=== PATIENT | female | born 1955 | race African-American/Black ===

== ENCOUNTER 2019-09-10 09:47 | Emergency (ER) | payer BC, SELFPAY ==
[2019-09-10] MEDS ORDERED: MORPHINE 4 MG/ML SYR ONE (10:22)
[2019-09-10] MEDS ORDERED: ONDANSETRON 4 MG (ODT) TAB ONE (10:22)
--- NOTE | 2019-09-10 11:09 | RAD REPORT ---
EXAM DESCRIPTION: RAD - Hand Left 3 View - 09/10/2019 11:01 am CLINICAL HISTORY: PAIN Fall, pain and swelling COMPARISON: No comparisons FINDINGS: Diffuse osteopenia is present. No acute fracture or dislocation is evident.
--- NOTE | 2019-09-10 11:10 | RAD REPORT ---
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 Soft tissue swelling is present along the dorsum of the wrist. No acute fracture or dislocation is evident.
--- OUTSIDE RECORDS SUMMARY | 2019-09-10 11:35 | XMS REPORT | Continuity of Care Document ---
:1955 Author Organization [email or web address] Care Team Providers Name Role Phone [employer] Unavailable Un available Problems Problem Status Onset Classification Date Comments Sourc e Date Reported LABS, F/U Active 11/25/[address] LABS---FOLLOW UP Active 06/10/[address] LAB FU Active 02/11/[address] LABS Active 12/25/[address] FOLLOW UP Active 05/06/[address] BDDC-GERD Active 10/09/[address] LOW IRON Active 08/27/[address] 723.4 - BRACHIAL Active 08/09/19 [facility] NEURIT 15 [place] CERVICAL Active 02/14/20 Condition 08/08/2014 [facility] RADICULOPATHY 14 Neuro 723.1 - Active 02/13/20 [facility] CERVICALGIA 14 [place] DYSPHAGIA Active 09/07/[address] COMPLICATIONS Active 08/06/19 Misael as FROM SURGERY [address] [place] [address] ABDOMINAL PAIN Active 07/26/19 [facility] xas [address] [place] [address] 727.82 - CALCIUM Active 02/09/20 [facility] DEPOSIT 13 [place] Anxiety (finding) Resolved Problem 09/30/2018 [facility], OPID [place] Diabetes mellitus Active Problem 09/30/2018 [facility] (disorder) [facility], OPID [place] Hyperlipidemia Resolved Problem 09/30/2018 [facility] (disorder) [facility], OPID [place] Hypertensive Active Problem 09/30/2018 Misael as disorder, Medical systemic arterial Ce nter, (disorder) OPID [place] Hypothyroidism Resolved Problem 09/30/2018 [facility] (disorder) [facility], OPID [place] Low blood Active Problem 09/30/2018 [facility] pressure Medical (disorder) [place], OPID [place] Left hemiparesis Active Problem 09/30/2018 [facility] (disorder) [facility] Nausea (finding) Active Problem 09/30/2018 [facility], JASON [place] Numbness and Active Problem 09/30/2018 [facility] as tingling Medical sensation of skin Ce nter (finding) Osteoarthritis Active Problem 09/30/2018 [facility] ex (disorder) [facility], JASON [place] Pain (finding) Active Problem 09/30/2018 [facility], JASON [place] Disease of Active Problem 09/30/2018 [facility] thyroid gland Medica l (disorder) Center, JASON [place] COMPLIC MED CARE Active [facility] NEC/NOS [facility] Center ABDMNAL PAIN Active [facility] s EPIGASTRIC [facility] Medications Medication Details Route Status Patient Ordering Order Source Instructions Provider Date ferrous sulfate 325 325 mg = 1 tab, Active 11/06 0/ [place] MG Oral Tablet PO, TID, # 100 2016 Ma dical tab, 2 Center Refill(s), Pharmacy: [facility]/pharmacy #[id number] Levofloxacin 750 MG 750 mg = 1 tab, No Longer / [facility] Oral Tablet PO, Q24H, for Active 2016 Medica l [Levaquin] pneumonia, X 5 Center day, # 5 tab, 0 Refill(s), Pharmacy: [facility]/pharmacy #[id number] ferrous sulfate 220 220 mg = 5 ml, Active 02/10 / [facility] mg/5 mL oral elixir PO, Daily, # 2016 Medical 450 ml, 5 Center Refill(s), Pharmacy: [facility]/pharmacy #[id number] Levothyroxine 50 microgram = Active 10/30/ [facility] Sodium 0.05 MG Oral 1 tab, PO, 2015 M edical Tablet [Synthroid] Daily, # 30 C enter tab, 0 Refill(s) Acetaminophen 325 1 tab, PO, TID, Active 10/30/ [facility] MG / Hydrocodone PRN Pain, # 60 2015 Medical Bitartrate 10 MG tab, 0 Center Oral Tablet [[place] Refill(s) 10/325] ALPRAZOLAM TABS 1 tab twice Active 08/08/ [facility] 2014 Neuro GABAPENTIN 300 MG 2 tab three Active 08/08/ [place] CAPS times daily 2014 Neuro AMITRIPTYLINE HCL 1 tab daily Active 08/08/ [place] 10 MG TABS 2015 Neuro HYDROCODONE-ACETAMI 1 to 2 tabs Active 08/08/ [facility] NOPHEN 10-325 every 4-6 hs 2014 Neuro MG/15ML SOLN prn pain CRESTOR 10 MG TABS Active 02/14/ ch er 2013 Neuro LEVOTHYROXINE Active SODIUM TABS 2013 Neuro METFORMIN HCL 1000 Active ch er MG TABS 2013 Neuro NORVASC 5 MG TABS Active che r 2014 Neuro DIOVAN TABS Active 2014 Neuro Acetaminophen 325 1 tab, PO, Q4H, Active [facility] MG / Hydrocodone for pain, # 24 2014 Medical Bitartrate 5 MG tab, 1 Center Oral Tablet [[place] Refill(s) 5/325] Acetaminophen 21.7 15 ml, PO, Q6H, Inactive [place] MG/ML / Hydrocodone Pain, # 240 mL, 2013 Medical Bitartrate 0.5 0 Refill(s) Cente r MG/ML Oral Solution Magnesium Sulfate 2 gm, 50 mL, Inactive [facility] Route: IVPB2013 Medical Drug form: INJ, Center ONCE, Dosing Weight 57.33, kg, Total dose = 2 gm, Start date: 09/04/13 6:13:00, Duration: 1 doses or times, Stop date: 09/04/13 6:13:00 Magnesium Sulfate 2 gm, 50 mL, Inactive [place] Route: IVPB2013 Medical Drug form: INJ, Center ONCE, Dosing Weight 57.33, kg, Total dose = 2 gm, Start date: 09/02/13 11:15:00, Duration: 1 doses or times, Stop date: 09/02/13 11:15:00 Calmoseptine Notes: (Same No Longer [place] as: Active 2013 Medical Calmoseptine) Center 1/2NS + KCL 20mEq/L 1,000 mL, Rate: No Longer [place] 1000ml (Premix) 75 ml/hr, Active 2013 Medica l 1,000 mL Infuse over: Center 13.3 hr, Route: IV, Dosing Weight 66.818 kg, Total Volume: 1,000, Start date: 08/28/13 12:09:00, Duration: 30 day, Stop date: 09/27/13 12:08:00 multivitamin with Notes: Adult No Longer [facility] minerals dose = 15ML Active 2013 Medical Take with food. Center (Same As: Centrum, Certagen) Ascorbic Acid / 1 ml, Route: No Longer [facility] Biotin / Folic Acid PO, Drug Form: Active 2013 Medical / Niacin / LIQ, Dosing Center pantothenate / Weight 66.818, pyridoxine / kg, Daily, Riboflavin / Start date: Thiamine / Vitamin 08/28/13 B 12 9:00:00, Duration: 30 day, Stop date: 09/26/13 9:00:00 Copper Sulfate 4 mg, Route: No Longer [place] PO, Daily, Active 2013 Medical Dosing Weight Center 66.818, kg, Start date: 08/28/13 9:00:00, Duration: 30 day, Stop date: 09/26/13 9:00:00 Zinc Sulfate Notes: (Zinc No Longer [place] sulfate Active 2013 Medical capsule) - 220 Center mg Zinc sulfate = 50 mg elemental zinc Same as Zinc Sulfate Valium Notes: (Same No Longer [facility] as: Valium) Active 2013 [facility] Magnesium Sulfate 2 gm, 50 mL, Inactive [facility] Route: IVPB2013 Medical Drug form: INJ, Center Q2H, Dosing Weight 66.818, kg, Total dose = 4 gm, Start date: 08/27/13 16:00:00, Duration: 2 doses or times, Stop date: 08/27/13 18:00:00 gabapentin 50 MG/ML Notes: (Same No Longer 08/26 [facility] Oral Solution as: Neurontin) Active 2013 [facility] ica Center Valium Notes: (Same No Longer [facility] as: Valium) Active 2013 [facility] Magnesium Sulfate 2 gm, 50 mL, Inactive [facility] Route: IVPB2013 Medical Drug form: INJ, Center Q2H, Dosing Weight 66.818, kg, Total dose = 4 gm, Start date: 08/24/13 12:00:00, Duration: 2 doses or times, Stop date: 08/24/13 14:00:00 Valium Notes: (Same No Longer [facility] as: Valium) Active 2013 [facility] heparin, porcine Notes: porcine No Longer [facility] heparin Active 2013 [facility] benzocaine-menthol Notes: Cepacol No Longer 08/05 [facility] topical lozenges (Same Active 2013 Medical As: Cepacol [place] Lozenges) Menthol 0.0044 Notes: (Same No Longer [facility] MG/MG / Zinc Oxide as: Active 2013 Medic al 0.2 MG/MG Topical Calmoseptine) [place] Ointment [Calmoseptine Ointment] Valium Notes: (Same Inactive [facility] as: Valium) 2013 [facility] Benzocaine 200 1 appl, Route: Inactive [place] MG/ML Mucosal [place] TOP, Q4H, Drug 2013 Medical [Hurricaine] form: SPRY, PRN Nikki ter Pain, Start date: 08/23/13 8:55:00, Duration: 30 day, Stop date: 09/22/13 8:54:00 benzocaine-menthol Notes: Cepacol Inactive 08/23 [facility] topical lozenges (Same 2013 Medical As: Cepacol [place] Lozenges) Menthol 2.5 MG 1 lozenge, [place] Lozenge [Robitussin Route: PO, 2013 M edical Cough Drop] Dosing Weight Center 66.818, kg, Q2H, Start date: 08/23/13 8:00:00, Duration: 30 day, Stop date: 09/22/13 6:00:00 benzocaine-menthol 1 lozenge, Inactive [place] topical Route: MUCOUS 2013 Medical MEM, Drug Form: Center JAI, Q2H, PRN Sore Throat, Start date: 08/23/13 7:26:00, Duration: 30 day, Stop date: 09/22/13 7:25:00 phenol Notes: No Longer [facility] Chloraseptic Active 2013 Medical [place] (Same as: [place] Chloraseptic, Sore Throat [place]) Menthol 0.0044 1 appl, Route: Inactive H [place] MG/MG / Zinc Oxide TOP, BID, Drug 2013 Medical 0.2 MG/MG Topical form: OINT, PRN Center Ointment Sore Throat, [Calmoseptine Start date: Ointment] 08/23/13 7:25:00, Duration: 30 day, Stop date: 09/22/13 7:24:00 Ancef + Sodium Notes: (Same No Longer [facility] Chloride 0.9% IV As: Ancef, Active 2013 [facility] connie 100 mL Kefzol) Center Dexamethasone 4 mg, Route: Inactive [place] IVP, ONCE, 2013 Medical Dosing Weight Center 66.818, kg, PRN Nausea & Vomiting, Start date: 08/22/13 12:15:00 Ondansetron 4 mg, Route: Inactive [place] as IVP, ONCE, 2013 Medical Dosing Weight Center 66.818, kg, PRN Nausea & Vomiting, Start date: 08/22/13 12:15:00 Promethazine 6.25 mg, Route: Inactive [place] IVPB, ONCE, 2013 Medical Dosing Weight Center 66.818, kg, PRN Nausea & Vomiting, Start date: 08/22/13 12:15:00 Flumazenil 0.2 mg, Route: [place] IVP, PRN, 2013 Medical Dosing Weight [place] 66.818, kg, PRN Benzodiazepine Reversal, Initial dose, Start date: 08/22/13 12:15:00, Duration: 30 day, Stop date: 09/21/13 12:14:00 Naloxone 0.04 mg, Route: Inactive [place] as IVP, Q2MIN, 2013 Medical Dosing Weight Center 66.818, kg, PRN Narcotic Reversal, Start date: 08/22/13 12:15:00, Duration: 8 doses or times, Stop date: Limited # of times Hydralazine 10 mg, Route: [place] IVP, Q20Min, 2013 Medical Dosing Weight Center 66.818, kg, PRN Elevated BP, Start date: 08/22/13 12:15:00, Duration: 2 doses or times, Stop date: Limited # of times esmolol 10 mg, Route: Inactive [place] IVP, Q5Min, 2013 Medical Dosing Weight Center 66.818, kg, PRN Other -See Comment, Start date: 08/22/13 12:15:00, Duration: 5 doses or times, Stop date: Limited # of times Labetalol 10 mg, Route: [facility], Q[facility], 2013 Medical Dosing Weight Center 66.818, kg, PRN Elevated BP, Start date: 08/22/13 12:15:00, Duration: 5 doses or times, Stop date: Limited # of times Metoprolol 1 mg, Route: [facility], Q5Min, 2013 Medical Dosing Weight Center 66.818, kg, PRN Other -See Comment, Start date: 08/22/13 12:15:00, Duration: 5 doses or times, Stop date: Limited # of times Hydromorphone 0.5 mg, Route: Inactive [facility] IVP, Q5Min, 2013 Medical Dosing Weight Center 66.818, kg, PRN Pain Score 7-10, Start date: 08/22/13 12:15:00, Duration: 4 doses or times, Stop date: Limited # of times Morphine Notes: (Same No Longer [facility] as:MORPhine Active 2013 Medical Sulfate) Center Ancef 2 gm, Route: Inactive [place] IVPB, ONCE, 2013 Medical Dosing Weight Center 66.818, kg, Start date: 08/22/13 10:55:00, Stop date: 08/22/13 10:55:00 Sodium Chloride 250 mL, Rate: No Longer [facility] 0.9% (titrate) 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 Medical mL with blood Center product administration, Dosing Weight 66.818, kg, Route: IV, Total Volume: 250, Start Date: 08/21/13 16:15:00, Duration: 30 day, Stop date: 09/20/13 16:14:00, Replace Every: 24 hr Magnesium Sulfate 2 gm, 50 mL, Inactive [place] Route: IVPB2013 Medical Drug form: INJ, Center ONCE, Dosing Weight 66.818, kg, Total dose = 2 gm, Start date: 08/21/13 8:30:00, Duration: 1 doses or times, Stop date: 08/21/13 8:30:00 Magnesium Sulfate 2 gm, 50 mL, Inactive [place] Route: IVPB2013 Medical Drug form: INJ, Center Q2H, Dosing Weight 66.818, kg, Total dose = 4 gm, Start date: 08/19/13 10:00:00, Duration: 2 doses or times, Stop date: 08/19/13 12:00:00 D5W 1/2NS 1,000 mL 1,000 mL, Rate: Inactive 08/05 [facility] 75 ml/hr, 2013 Medical Infuse over: Center 13.3 hr, Route: IV, Dosing Weight 66.818 kg, Total Volume: 1,000, Start date: 08/19/13 9:34:00, Duration: 30 day, Stop date: 09/18/13 9:33:00 Menthol 0.0044 Notes: (Same No Longer [facility] MG/MG / Zinc Oxide as: Active 2013 Medic al 0.2 MG/MG Topical Calmoseptine) Center Ointment [Calmoseptine Ointment] Ketorolac 4 days. Inactive [facility] 2014 Medical Center Flagyl Notes: (Same Inactive [facility] as: Flagyl) 2013 Medical Avoid alcohol. Center Saline Flush 0.9% Notes: Same as: No Longer 08/05 [facility] BD Posiflush Active 2013 Medical Sterile Center Saline Flush 0.9% Notes: Same as: No Longer 08/05 [facility] BD Posiflush Active 2013 Medical Sterile Center Lidocaine Notes: ([facility] Hydro[facility] 10 as: Xylocaine) Active 2013 Medical MG/ML Injectable Center Solution Diflucan Notes: (Same No Longer [facility] as: Diflucan) Active 2013 Medical Do not Center refrigerate Magnesium Sulfate 2 gm, 50 mL, Inactive [facility] Route: IVPB, 2013 Medical Drug form: INJ, Center ONCE, Dosing Weight 66.818, kg, Total dose = 2 gm, Start date: 08/16/13 9:03:00, Duration: 1 doses or times, Stop date: 08/16/13 9:03:00 Miralax Notes: Dissolve No Longer [facility] as in 8 oz of Active 2013 Medical water or juice. Center (Same as: Miralax) Flagyl Notes: (Same No Longer [facility] as: Flagyl) Active 2013 Medical Center cefepime Notes: (Same No Longer [facility] As: Maxipime) Active 2013 Medical Center morphine Sulfate Notes: (Same Inactive [facility] as:MORPhine 2013 Medical Sulfate) Center D5W 1/2NS 1,000 mL 1,000 mL, Rate: No Longer [place] 125 ml/hr, Active 2013 Medical Infuse over: 8 Center hr, Route: IV, Dosing Weight 66.818 kg, Total Volume: 1,000, Start date: 08/15/13 0:00:00, Duration: 30 day, Stop date: 09/13/13 23:59:00 Morphine Notes: (Same Inactive [facility] as:MORPhine 2013 Medical Sulfate) Center Morphine Notes: (Same Inactive [facility] as:MORPhine 2013 Medical Sulfate) Center Acetaminophen 20 Notes: Do not No Longer [place] MG/ML / Hydrocodone exceed 4gm/day Active 2013 Medical Bitartrate 0.667 of Center MG/ML Oral Solution acetaminophen. (Same as: [place] 325/10) Magnesium Sulfate 2 gm, 50 mL, Inactive [facility] Route: IVPB, 2013 Medical Drug form: INJ, Center Q2H, Dosing Weight 66.818, kg, Total dose = 4 gm, Start date: 08/14/13 8:00:00, Duration: 2 doses or times, Stop date: 08/14/13 10:00:00 Phosphorus / Notes: (Same In[place] Potassium as: K 2013 Medical Phosphate.) 1 Center mMol phoshate has 1.47 mEq potassium Infuse over 4 hours iodixanol Notes: (Same Inactive [facility] as: Visipaque). 2013 Medical Center Acetaminophen 20 Notes: Do not No Longer [place] MG/ML / Hydrocodone exceed 4gm/day Active 2013 Medical Bitartrate 0.667 of Center MG/ML Oral Solution acetaminophen. (Same as: Zolvit) Acetaminophen 20 Notes: Do not No Longer [facility] MG/ML / Hydrocodone exceed 4gm/day Active 2013 Medical Bitartrate 0.667 of Center MG/ML Oral Solution acetaminophen. (Same as: [place] 325/10) Neutra-Phos 1 pkt, Route: Inactive [place] PO, Dosing 2013 Medical Weight 66.818, Center kg, TID-Before Meals, Start date: 08/12/13 11:30:00, Duration: 30 day, Stop date: 09/11/13 7:30:00 Phosphorus / Notes: (Same Inactive [place] Potassium as: K 2013 Medical Phosphate.) 1 Center mMol phoshate has 1.47 mEq potassium Infuse over 4 hours Magnesium Sulfate 2 gm, 50 mL, Inactive [facility] Route: IVPB, 2013 Medical Drug form: INJ, Center Q2H, Dosing Weight 66.818, kg, Total dose = 4 gm, Start date: 08/11/13 10:00:00, Duration: 2 doses or times, Stop date: 08/11/13 12:00:00 Dilaudid Notes: Same as: Inactive [place] as Dilaudid 2013 [facility] Center Thyroxine Notes: Take 1 No Longer [place] as hour before or Active 2013 Medical 2 hours after Center meal; Enteral feeds may interefere with the absorption of this medication.(Sean e as:Levothroid, Synthroid) rosuvastatin Notes: (Same No Longer [place] As: Crestor) Active 2013 [facility] Acetaminophen 20 Notes: Do not No Longer [place] MG/ML / Hydrocodone exceed 4gm/day Active 2013 Medical Bitartrate 0.667 of Center MG/ML Oral Solution acetaminophen. (Same as: Zolvit) Insulin, Regular, 60 units) No Longer [facility] Pork Stable for 28 Active 2013 Medical days at room Center temperature Expires in days from D ate Dextrose 50% 12.5 gm, 25 mL, No Longer 08/10/ [facility] Syringe Route: IVP, Active 2013 Medical Drug Form: INJ, Center Dosing Weight 66.818, kg, PRN, PRN Blood Glucose Results, Start date: 08/10/13 16:32:00, Duration: 30 day, Stop date: 10/09/13 16:31:00 Glucagon 1 mg, Route: No Longer [place] IM, Drug form: Active 2013 Medical PDR/INJ, PRN, Center Dosing Weight 66.818, kg, PRN Blood Glucose Results, Start date: 08/10/13 16:32:00, Duration: 30 day, Stop date: 10/09/13 16:31:00 gabapentin Notes: (Same No Longer [place] as as: Neurontin) Active 2013 Medical Center Phosphorus / Notes: (Same In[place] Potassium as: K 2013 Medical Phosphate.) 1 Center mMol phoshate has 1.47 mEq potassium Infuse over 4 hours Valium Notes: (Same No Longer [place] as: Valium) Active 2013 Medical Center Valium Notes: (Same Inactive [place] as: Valium) 2014 Medical Center Norvasc Notes: (Same No Longer [facility] as: Norvasc) Active 2013 Medical Center Hydrochlorothiazide Notes: (Same No Longer 08/10 [facility] as: Microzide) Active 2013 Medical With food. Center Metformin Notes: ([facility]: Gluc[facility]) Active 2013 Medical Take with meal Center 1/2 NS 1000 mL 1,000 mL, Rate: No Longer [place] 50 ml/hr, Active 2013 Medical Infuse over: 20 Center hr, Route: IV, Dosing Weight 66.818 kg, Total Volume: 1,000, Start date: 08/09/13 10:06:00, Duration: 30 day, Stop date: 09/08/13 10:05:00 D5W 1/2NS 1,000 mL 1,000 mL, Rate: Inactive [place] 100 ml/hr, 2013 Medical Infuse over: 10 Center hr, Route: IV, Dosing Weight 66.818 kg, Total Volume: 1,000, Start date: 08/09/13 6:53:00, Duration: 30 day, Stop date: 09/08/13 6:52:00 Phosphorus / Notes: (Same In[place] Potassium as: K 2013 Medical Phosphate.) 1 Center mMol phoshate has 1.47 mEq potassium Infuse over 4 hours Ambien Notes: (Same No Longer [place] As: Ambien) Active 2013 Medical Center levothyroxine 50 50 microgram = Active [place] mcg (0.05 mg) oral 1 tab, PO, 2013 Me dical tablet Daily, # 30 Center tab, 0 Refill(s) Multiple Vitamins 1 tab, PO, No Longer 08/08/ M H [place] oral tablet Daily, # 30 Active 2013 Medical tab, 0 Center Refill(s) Rosuvastatin 5 mg = 1 tab, No Longer [place] calcium 5 MG Oral PO, Bedtime, # Active 2014 Medical Tablet [Crestor] 30 tab, 0 Cente r Refill(s) Metformin 1,000 mg = 1 Active [place] hydrochloride 1000 tab, PO, BID, # 2014 Medical MG Oral Tablet 30 tab, 0 Center Refill(s) hydrochlorothiazide 12.5 mg = 1 No Longer [place] 12.5 mg oral tablet tab, PO, Daily, Active 2013 Medical # 30 tab, 0 Center Refill(s) gabapentin 300 MG 300 mg = 1 cap, Active [facility] Oral Capsule PO, QID, 0 2014 Medical Refill(s) Center Amlodipine 5 MG 5 mg = 1 tab, Active [facility] Oral Tablet PO, Daily, # 30 2013 Medi connie [Norvasc] tab, 0 Center Refill(s) Insulin, Regular, 60 units) No Longer [facility] Pork Stable for 28 Active 2013 Medical days at room Center temperature Expires in days from D ate Dextrose 50% 12.5 gm, 25 mL, No Longer 08/08/ M H [place] Syringe Route: IVP, Active 2013 Medical Drug Form: INJ, Center Dosing Weight 66.818, kg, PRN, PRN Blood Glucose Results, Start date: 08/08/13 8:43:00, Duration: 30 day, Stop date: 09/07/13 8:42:00 Glucagon 1 mg, Route: No Longer [facility] IM, Drug form: Active 2013 Medical PDR/INJ, PRN, Center Dosing Weight 66.818, kg, PRN Blood Glucose Results, Start date: 08/08/13 8:43:00, Duration: 30 day, Stop date: 09/07/13 8:42:00 Flagyl Notes: (Same No Longer [facility] as: Flagyl) Active 2013 Medical Avoid alcohol. Center cefepime Notes: (Same No Longer [facility] [place] As: Maxipime) Active 2013 Medical Center Benadryl Notes: (Same Inactive [facility] as: Benadryl) 2013 [facility] Center Flagyl Notes: (Same Inactive [facility] as: Flagyl) 2014 Medical Avoid alcohol. Center cefepime Notes: (Same Inactive [facility] As: Maxipime) 2013 [facility] Center Zofran 4 mg, Route: Inactive [facility] IVP, Drug form: 2014 Medical INJ, ONCE, Center Dosing Weight 66.818, kg, Start date: 08/07/13 0:50:00, Stop date: 08/07/13 0:50:00 phenol Notes: No Longer [facility] Chloraseptic Active 2013 Medical [place] (Same as: [place] Chloraseptic, Sore Throat [place]) chlorhexidine Notes: (Same No Longer [facility] gluconate 1.2 MG/ML As: Peridex) Active 2013 Medical Mouthwash [place] Famotidine Notes: (Same No Longer Misael as as: Pepcid) Can Active 2013 Medical be dilute in Center 5-10cc NS IVP: Slow IV push over at least 2 minutes. Hydromorphone Notes: (Same No Longer [facility] as: Dilaudid) Active 2013 Medical conc = 0.5 [place] mg/ml Hydromorphone BOILER ATTENDANT Dose: ;Delay: ;Basal: Albumin Human, [facility] Notes: LOT#: Inactive [facility] 50 MG/ML Injectable 2013 Medical Solution g: Center ___ (Same as: Albuminar) "blood product derivative&quot ; [place] Notes: No Longer [facility] Reconstitute Active 2013 Medical with 1.2 ml of [place] sterile water. Final concentration = 20 mg/1ml. Maximum 40 mg/24 hours (Same As: [place]). NS 500 mL 500 mL, Rate: No Longer Misael as 999 ml/hr, Active 2013 Medical Infuse over: Center 0.5 hr, Route: IV, Dosing Weight 66.818 kg, Total Volume: 500, Start date: 08/06/13 4:08:00, Duration: 30 day, Stop date: 09/05/13 4:07:00 chlorhexidine Notes: (Same No Longer [facility] gluconate 1.2 MG/ML As: Peridex) Active 2013 [facility] Mouthwash Center cefepime Notes: (Same Inactive [facility] As: Maxipime) 2013 Medical Center heparin, porcine Notes: porcine No Longer [facility] heparin Active 2013 [facility] Center Flagyl Notes: (Same No Longer [facility] as: Flagyl) Active 2013 Medical Avoid alcohol. Center cefepime /= 50 ml/min), [place] Start date: 2013 Medical 08/05/13 Center 22:00:00, Duration: 30 day, Stop date: 09/04/13 14:00:00 norepinephrine 8 mg 242 mL, Rate: No Longer [facility] + Sodium Chloride Use as direced, Active 2013 Medical 0.9% (titrate) 242 Dosing Weight Center mL 66.818, kg, Route: IV, Total Volume: 250 mL, Start Date: 08/05/13 21:29:00, Stop date: 09/04/13 21:28:00, Replace Every: 24 hr LR IV 1,000 mL 1,000 mL, Rate: No Longer [facility] 125 ml/hr, Active 2013 Medical Infuse over: 8 Center hr, Route: IV, Dosing Weight 66.818 kg, Total Volume: 1,000, Start date: 08/05/13 21:29:00, Duration: 30 day, Stop date: 09/04/13 21:28:00 Midazolam 1 MG/ML Notes: (Same No Longer [facility] Injectable Solution as: Versed) Active 2013 [facility] Center Fentanyl 1,000 No Longer [place] microgram, 20 Active 2013 Medical mL, Rate: Center Titrate as directed, Dosing Weight 66.818, kg, Route: IV, Total Volume: 20 mL, Start Date: 08/05/13 21:26:00, Stop date: 09/04/13 21:25:00, Replace Every: 24 hr Enoxaparin 30 mg, Route: Inactive Misael as SUB-Q, 2013 Medical [id number], Center Dosing Weight 66.818, kg, Start date: 08/05/13 21:00:00, Duration: 30 day, Stop date: 09/04/13 9:00:00 Dextrose 50% Special No Longer 08/06/ [facility] Syringe Instructions: Active 2013 Medical For FSBG < Center 40mg/dL Insulin, Regular, 60 units) No Longer 08/06/ [facility] Pork Stable for 28 Active 2013 Medical days at room Center temperature Expires in days from D ate Allergies, Adverse Reactions, Alerts Substance Category Reaction Severity Reaction Status Date Comments S ource type Reported codeine Assertion hallucination Drug Active [facility] [place] [facility] Darvoc[place] Assertion Drug [place] [facility] lisinopril Assertion Drug Active [facility] Immunizations Immunization Date Given Site Status Last Updated Comments Naomy rce Hx pneumococcal 10/30/2014 completed Sweet Result [facility] vaccine<sup>2</luong Comment: Me dical p> [10/30/2014] Center pt had one 8 years ago Hx pneumococcal 10/30/2014 completed Sweet Result [facility] vaccine<sup>2</luong Comment: Me dical p> [10/30/2014] Center pt had one 8 years ago Hx pneumococcal 10/30/2014 completed Sweet Result [facility] vaccine<sup>1</luong Comment: Me dical p> [10/30/2014] Center pt had one 8 years ago Hx influenza 12/30/2013 completed Sweet Result [place] as vaccine-unspecifi Comment: Me dical ed<sup>1</sup> [10/30/2014] Nikki ter pt is unsure of the day vaccine was given Hx influenza 12/30/2013 completed Sweet Result [place] as vaccine-unspecifi Comment: Me dical ed<sup>1</sup> [10/30/2014] Nikki ter pt is unsure of the day vaccine was given Hx influenza 12/30/2013 completed Sweet Result [place] as vaccine-unspecifi Comment: Me dical ed<sup>2</sup> [10/30/2014] Nikki ter pt is unsure of the day vaccine was given Results Order Name Results Value Reference Date Interpretation Comments Naomy rce Range ANEMIA % [place] 37 12 - 57 08/30 [facility] ANEMIA UIBC 165 110 - 370 08/30 [facility] ANEMIA TIBC 261 228 - 428 08/30 [facility] ANEMIA Ferritin Lvl 58 5 - 204 08/30 [facility] ANEMIA Iron 96 30 - 160 08/30 [facility] HEMATOLOGY RDW 14.3 11.5 - 08/30 14.5 [facility] HEMATOLOGY Platelet 323 133 - 450 08/30 [facility] HEMATOLOGY MPV 7.5 7.4 - 10.4 08/30 [facility] HEMATOLOGY MCHC 33.1 32.0 - 08/30 [facility] 36.0 [facility] HEMATOLOGY RBC 3.91 4.20 - 08/30 [place] 5.40 [facility] HEMATOLOGY WBC 5.7 3.7 - 10.4 08/30 [facility] HEMATOLOGY Hgb 12.3 12.0 - 08/30 16.0 [facility] HEMATOLOGY MCH 31.5 27.0 - 08/30 [facility] 31.0 [facility] HEMATOLOGY Hct 37.2 36.0 - 08/30 48.0 [facility] HEMATOLOGY MCV 95.3 80.0 - 08/30 [place] 98.0 [facility] HEMATOLOGY Monocytes # 0.4 0.0 - 0.8 08/30 [facility] HEMATOLOGY Eosinophils # 0.1 0.0 - 0.5 08/30 [facility] HEMATOLOGY Segs 58.0 45.0 - 08/30 [place] 75.0 [facility] HEMATOLOGY Lymphocytes 33.3 20.0 - 08/30 [place] 40.0 [facility] HEMATOLOGY Monocytes 6.9 2.0 - 12.0 08/30 [facility] HEMATOLOGY Eosinophils 1.1 0.0 - 4.0 08/30 [facility] HEMATOLOGY Basophils 0.7 0.0 - 1.0 08/30 [facility] HEMATOLOGY Neutrophils # 3.3 1.5 - 8.1 08/30 [facility] HEMATOLOGY Lymphocytes # 1.9 1.0 - 5.5 08/30 [facility] ANEMIA % [place] 9 12 - 57 10/30 [facility] ANEMIA UIBC 424 110 - 370 10/30 [facility] ANEMIA Ferritin Lvl 11 5 - 204 10/30 [facility] ANEMIA TIBC 468 228 - 428 10/30 [facility] ANEMIA Iron 44 30 - 160 10/30 [facility] HEMATOLOGY PB Smear Path Review of 10/30 [facility] [place] [facility] Center blood smear reveals hypochromi c red cells with anisocytos is and polychroma wali. There are occasional target cells, echinocyte s, and pencil cells are seen. WBCs and platelets are normal in number with unremarkab le morphology . Impression : The red cell morphology and iron study results are consistent with iron deficiency . CPT: 12738 HEMATOLOGY Lymphocytes 27.8 20.0 - 10/30 40.0 [facility] HEMATOLOGY Monocytes 6.1 2.0 - 12.0 10/30 [facility] HEMATOLOGY Segs-Bands # 5.5 1.5 - 8.1 10/30 [facility] HEMATOLOGY Eosinophils 1.0 0.0 - 4.0 10/30 [facility] HEMATOLOGY Basophils 0.8 0.0 - 1.0 10/30 [facility] HEMATOLOGY Eosinophils # 0.1 0.0 - 0.5 10/30 [facility] HEMATOLOGY Basophils # 0.1 0.0 - 0.2 10/30 [facility] HEMATOLOGY Lymphocytes # 2.4 1.0 - 5.5 10/30 [facility] HEMATOLOGY Monocytes # 0.5 0.0 - 0.8 10/30 [facility] HEMATOLOGY Segs 64.3 45.0 - 10/30 75.0 [facility] HEMATOLOGY MCHC 31.8 32.0 - 10/30 36.0 [facility] HEMATOLOGY RDW 14.0 11.5 - 10/30 14.5 [facility] HEMATOLOGY Platelet 292 133 - 450 10/30 [facility] HEMATOLOGY MPV 7.8 7.4 - 10.4 10/30 [facility] HEMATOLOGY MCH 28.1 27.0 - 10/30 31.0 [facility] HEMATOLOGY RBC 4.02 4.20 - 10/30 [place] 5.40 /2014 [facility] HEMATOLOGY Hgb 11.3 12.0 - 10/30 16.0 /2014 [facility] HEMATOLOGY Hct 35.5 36.0 - 10/30 48.0 /2014 [facility] HEMATOLOGY MCV 88.3 80.0 - 10/30 98.0 /2014 [facility] HEMATOLOGY WBC 8.5 3.7 - 10.4 10/30 [facility] HEMATOLOGY Retic Auto 1.3 0.5 - 1.5 10/30 [facility] CHEM PANEL eGFR 72 09/05 <sup>1</sup>R [facility] esult Medical Comment: The Center eGFR is calculated using the CKD-EPI formula. In most young, healthy individuals the eGFR will be >90 mL/min/1.73m2 . The eGFR declines with age. An eGFR of 60-89 may be normal in some populations, particularly the elderly, for whom the CKD-EPI formula has not been extensively validated. Use of the eGFR is not recommended in the following populations:& lt;br/>
I ndividuals with unstable creatinine concentration s, including patients and those with serious co-morbid conditions.<b r/>
Patie nts with extremes in muscle mass or diet.

The data above are obtained from the National Kidney Disease Education Program (NKDEP) which additionally recommends that when the eGFR is used in patients with extremes of body mass index for purposes of drug dosing, the eGFR should be multiplied by the estimated BMI. CHEM PANEL Glucose Lvl 179 70 - 99 09/05 <sup>4</sup>I nterpretive Medical Data: Adult Center reference range values reflect the clinical guidelines
of the [place] [employer]. CHEM PANEL Creatinine 1.0 0.5 - 1.4 09/05 [facility] CHEM PANEL BUN 16 7 - 22 09/05 [facility] CHEM PANEL AGAP 17.9 10.0 - 09/05 [facility] 20.0 [facility] CHEM PANEL Sodium Lvl 140 135 - 145 09/05 [facility] CHEM PANEL Calcium Lvl 9.6 8.5 - 10.5 09/05 [facility] CHEM PANEL CO2 25 24 - 32 07 [facility] CHEM PANEL Chloride Lvl 102 95 - 109 07 [facility] CHEM PANEL Potassium Lvl 4.9 3.5 - 5.1 07 [facility] CHEM PANEL Phosphorus 3.5 2.5 - 4.5 07 [facility] CHEM PANEL Magnesium Lvl 1.8 1.8 - 2.4 07 [facility] HEMATOLOGY Eosinophils # 0.1 0.0 - 0.5 07 [facility] HEMATOLOGY Monocytes # 0.6 0.0 - 0.8 07 [facility] HEMATOLOGY Lymphocytes # 2.5 1.0 - 5.5 07 [facility] HEMATOLOGY Basophils 0.4 0.0 - 1.0 07 [facility] HEMATOLOGY Segs-Bands # 4.6 1.5 - 8.1 09/05 [facility] HEMATOLOGY Eosinophils 1.1 0.0 - 4.0 07 [facility] HEMATOLOGY Lymphocytes 31.5 20.0 - 07 40.0 [facility] HEMATOLOGY Monocytes 8.3 2.0 - 12.0 07 [facility] HEMATOLOGY Segs 58.7 45.0 - 07 75.0 /2013 [facility] HEMATOLOGY Platelet 541 133 - 450 07 [facility] HEMATOLOGY MPV 7.7 7.4 - 10.4 09/05 [facility] HEMATOLOGY MCV 93.2 81.0 - 07 99.0 /2013 [facility] HEMATOLOGY MCH 30.7 27.0 - 07/ 31.0 [facility] HEMATOLOGY MCHC 32.9 32.0 - 07 36.0 [facility] HEMATOLOGY RDW 16.6 11.5 - 07/ 14.5 [facility] HEMATOLOGY Hgb 7.5 12.0 - 07 16.0 [facility] HEMATOLOGY Hct 22.8 36.0 - 07/ 48.0 /2013 [facility] HEMATOLOGY WBC 7.8 3.7 - 10.4 07 [facility] HEMATOLOGY RBC 2.45 4.20 - 07 [facility] 5.40 [facility] CHEM PANEL Magnesium Lvl 1.7 1.8 - 2.4 09/04 [facility] CHEM PANEL Phosphorus 2.9 2.5 - 4.5 09/04 [facility] CHEM PANEL eGFR 82 09/04 <sup>2</sup>R esult Medical Comment: The Center eGFR is calculated using the CKD-EPI formula. In most young, healthy individuals the eGFR will be >90 mL/min/1.73m2 . The eGFR declines with age. An eGFR of 60-89 may be normal in some populations, particularly the elderly, for whom the CKD-EPI formula has not been extensively validated. Use of the eGFR is not recommended in the following populations:& lt;br/>
I ndividuals with unstable creatinine concentration s, including patients and those with serious co-morbid conditions.<b r/>
Patie nts with extremes in muscle mass or diet.

The data above are obtained from the National Kidney Disease Education Program (NKDEP) which additionally recommends that when the eGFR is used in patients with extremes of body mass index for purposes of drug dosing, the eGFR should be multiplied by the estimated BMI. CHEM PANEL Calcium Lvl 9.3 8.5 - 10.5 09/04 [facility] CHEM PANEL CO2 27 24 - 32 09/04 [facility] CHEM PANEL Chloride Lvl 105 95 - 109 09/04 [facility] CHEM PANEL Creatinine 0.9 0.5 - 1.4 09/04 [facility] CHEM PANEL Sodium Lvl 142 135 - 145 09/04 [facility] CHEM PANEL Potassium Lvl 4.8 3.5 - 5.1 09/04 [facility] CHEM PANEL Glucose Lvl 209 70 - 99 09/04 <sup>5</sup>I nterpretive Medical Data: Adult Center reference range values reflect the clinical guidelines
of the [employer]. CHEM PANEL BUN 15 7 - 22 09/04 [facility] CHEM PANEL AGAP 14.8 10.0 - 09/04 .0 /2013 [facility] HEMATOLOGY Monocytes 6.9 2.0 - 12.0 07 Medical Center HEMATOLOGY Segs 56.5 45.0 - 07 75.0 /2013 [facility] HEMATOLOGY Lymphocytes 34.3 20.0 - 07 40.0 /2013 [facility] HEMATOLOGY Monocytes # 0.4 0.0 - 0.8 07 [facility] HEMATOLOGY Basophils 0.5 0.0 - 1.0 07 [facility] HEMATOLOGY Eosinophils 1.8 0.0 - 4.0 07 [facility] HEMATOLOGY Lymphocytes # 1.8 1.0 - 5.5 09/04 [facility] HEMATOLOGY Segs-Bands # 3.0 1.5 - 8.1 09/04 [facility] HEMATOLOGY Eosinophils # 0.1 0.0 - 0.5 09/04 [facility] HEMATOLOGY RDW 16.6 11.5 - 09/04 14.5 [facility] HEMATOLOGY MCHC 32.4 32.0 - 07 36.0 [facility] HEMATOLOGY MPV 7.3 7.4 - 10.4 09/04 [facility] HEMATOLOGY Platelet 417 133 - 450 09/04 [facility] HEMATOLOGY WBC 5.3 3.7 - 10.4 09/04 [facility] HEMATOLOGY Hct 32.0 36.0 - 07 48.0 /2013 [facility] HEMATOLOGY Hgb 10.4 12.0 - 07 16.0 [facility] HEMATOLOGY MCH 30.4 27.0 - 07 31.0 [facility] HEMATOLOGY MCV 93.9 81.0 - 07 99.0 /2013 [facility] HEMATOLOGY RBC 3.41 4.20 - 07 5.40 [facility] CHEM PANEL Phosphorus 2.0 2.5 - 4.5 09/02 [facility] CHEM PANEL Magnesium Lvl 1.8 1.8 - 2.4 09/02 [facility] CHEM PANEL eGFR 82 09/02 <sup>3</sup>R esult Medical Comment: The Center eGFR is calculated using the CKD-EPI formula. In most young, healthy individuals the eGFR will be >90 mL/min/1.73m2 . The eGFR declines with age. An eGFR of 60-89 may be normal in some populations, particularly the elderly, for whom the CKD-EPI formula has not been extensively validated. Use of the eGFR is not recommended in the following populations:& lt;br/>
I ndividuals with unstable creatinine concentration s, including patients and those with serious co-morbid conditions.<b r/>
Patie nts with extremes in muscle mass or diet.

The data above are obtained from the National Kidney Disease Education Program (NKDEP) which additionally recommends that when the eGFR is used in patients with extremes of body mass index for purposes of drug dosing, the eGFR should be multiplied by the estimated BMI. CHEM PANEL CO2 27 24 - 32 09/02 [facility] CHEM PANEL Calcium Lvl 9.6 8.5 - 10.5 09/02 [place] [facility] CHEM PANEL Chloride Lvl 106 95 - 109 09/[facility] CHEM PANEL Potassium Lvl 4.4 3.5 - 5.1 09/02 [place] [facility] CHEM PANEL Sodium Lvl 140 135 - 145 09/02 [facility] CHEM PANEL Creatinine 0.9 0.5 - 1.4 09/02 [facility] CHEM PANEL Glucose Lvl 191 70 - 99 09/02 <sup>6</sup>I nterpretive Medical Data: Adult Center reference range values reflect the clinical guidelines
of the [place]. CHEM PANEL BUN 13 7 - 22 09/02 [facility] CHEM PANEL AGAP 11.4 10.0 - 09/02 20. [facility] HEMATOLOGY MPV 7.2 7.4 - 10.4 09/02 [facility] HEMATOLOGY Hgb 7.9 12.0 - 09/02 [place] 16. [facility] HEMATOLOGY WBC 8.3 3.7 - 10.4 09/02 [facility] HEMATOLOGY Hct 24.2 36.0 - 09/02 [place] 48.0 [facility] HEMATOLOGY RBC 2.59 4.20 - 09/02 [place] 5.40 /2013 [facility] HEMATOLOGY Platelet 536 133 - 450 09/02 [facility] HEMATOLOGY MCHC 32.4 32.0 - 09/02 [place] 36.0 [facility] HEMATOLOGY RDW 15.8 11.5 - 09/02 [place] 14.5 [facility] HEMATOLOGY MCH 30.3 27.0 - 09/02 [place] 31.0 [facility] HEMATOLOGY MCV 93.5 81.0 - 09/02 [place] 99.0 [facility] HEMATOLOGY Monocytes # 0.6 0.0 - 0.8 09/02 [place] [facility] HEMATOLOGY Eosinophils # 0.2 0.0 - 0.5 09/02 [place] [facility] HEMATOLOGY Basophils # 0.1 0.0 - 0.2 09/02 [place] [facility] HEMATOLOGY Lymphocytes 33.1 20.0 - 09/02 [place] 40.0 [facility] HEMATOLOGY Lymphocytes # 2.8 1.0 - 5.5 09/02 [place] [facility] HEMATOLOGY Segs 56.0 45.0 - 09/02 [place] 75.0 [facility] HEMATOLOGY Segs-Bands # 4.7 1.5 - 8.1 09/02 as [facility] HEMATOLOGY Basophils 0.9 0.0 - 1.0 09/02 [facility] HEMATOLOGY Eosinophils 2.2 0.0 - 4.0 09/02 a [place] [facility] HEMATOLOGY Monocytes 7.8 2.0 - 12.0 09/02 [facility] HEMATOLOGY Basophils # 0.1 0.0 - 0.2 08/28 [place] [facility] IMMUNOLOGY C-REACTIVE 43.5 <=2.9 mg/L 08/28 [place] [facility] HEMATOLOGY Basophils # 0.1 0.0 - 0.2 08/27 a [facility] IMMUNOLOGY Prealbumin 7.2 18.0 - 08/27 [place] 45.0 [facility] BLOOD BANK ABO/Rh A POS 08/27 [place] RESULTS [facility] BLOOD BANK Antibody Scrn Negative 08/27 [place] as RESULTS (08/27/13 4:40 AM) /2013 [facility] URINE AND UA <=1.0 0.1 - 1.0 08/24 [facility] Urobilinogen mg/dL /2013 [facility] URINE AND UA Sq Epi None Seen 08/24 [facility] STOOL [facility] URINE AND UA RBC 1 0 - 2 08/24 [facility] STOOL [facility] URINE AND UA Mucus Few /LPF None Seen 08/24 [facility] STOOL /LPF [facility] URINE AND UA Color Light Yellow Yellow 08/24 [facility] *NA* /2013 [facility] (08/24/13 8:11 AM) [place] URINE AND UA Turbidity Clear Clear 08/24 [facility] (08/24/13 8:11 AM) [facility] URINE AND UA pH 6.0 5.0 - 8.0 08/24 [facility] URINE AND UA Spec Grav 1.008 <=1.030 08/24 [facility] URINE AND UA Protein Negative Negative 08/24 [facility] mg/dL mg/dL [facility] URINE AND UA Glucose 50 mg/dL Negative 08/24 [facility] mg/dL [facility] URINE AND UA Ketones Negative Negative 08/24 [facility] mg/dL mg/dL [facility] URINE AND UA Bili Negative Negative 08/24 [facility] *NA* /2013 [facility] (08/24/13 8:11 AM) [place] URINE AND UA Blood Negative Negative 08/24 [facility] (08/24/13 8:11 AM) [facility] URINE AND UA Nitrite Negative Negative 08/24 [facility] (08/24/13 8:11 AM) [facility] URINE AND UA Leuk Est Negative Negative 08/24 [facility] (08/24/13 8:11 AM) [facility] URINE AND UA WBC 1 0 - 5 08/24 [facility] STOOL [facility] URINE AND UA Bacteria Occasional None Seen 08/24 [place] STOOL /HPF /HPF [facility] CHEM PANEL Total Protein 5.2 6.4 - 8.4 08/22 [place] [facility] CHEM PANEL ALT 20 0 - 65 08/22 [facility] CHEM PANEL Alk Phos 118 39 - 136 08/22 [facility] CHEM PANEL Albumin Lvl 1.9 3.5 - 5.0 08/22 [place] /2013 [facility] CHEM PANEL AST 21 0 - 37 08/22 [facility] CHEM PANEL Bili Total 0.1 0.2 - 1.3 08/22 /2013 [facility] CHEM PANEL B/C Ratio 10 6 - 25 08/22 [facility] CHEM PANEL Globulin 3.3 2.0 - 4.0 08/22 [facility] CHEM PANEL A/G Ratio 0.6 0.7 - 1.6 08/22 [facility] HEMATOLOGY PTT 32.6 22.9 - 08/22 <sup>23</sup> [place] 35.8 Interpretive Medical Data: [facility] Therapeutic Range: 57 - 92 [place] HEMATOLOGY PT 13.9 12.0 - 08/22 [place] 14.7 [facility] HEMATOLOGY INR 1.08 0.85 - 08/22 <sup>21</sup> [place] 1. Interpretive Medical Data: Center RECOMMENDED RANGES FOR PROTIME INR:
2.0-3.0 for most medical and surgical thromboemboli c states.
2.5-3.5 for artificial heart valves and recurrent embolism.<br/ >
INR SHOULD BE USED ONLY FOR PATIENTS ON STABLE ANTICOAGULANT THERAPY. BLOOD BANK FFP product Product available 08/21 [facility] RESULTS (08/21/13 4:15 PM) /2013 [facility] BLOOD BANK RBC product Product available 08/21 [facility] RESULTS (08/21/13 4:15 PM) /2013 [facility] BLOOD BANK Antibody Scrn Negative 08/21 [facility]ael as RESULTS (08/21/13 11:45 AM) /2013 [facility] BLOOD BANK ABO/Rh A POS 08/21 RESULTS /2013 [facility] HEMATOLOGY Large Plt Slight None Seen 08/21 [place] *ABN* /2013 Medical (08/21/13 1:19 AM) Center HEMATOLOGY Target Cell Slight None Seen 08/[place] *ABN* /2013 Medical (08/21/13 1:19 AM) [place] HEMATOLOGY Anisocyte 1+ None Seen 08/21 [place] *ABN* /2013 Medical (08/21/13 1:19 AM) Center HEMATOLOGY Polychrom Slight None Seen 08/21 (08/21/13 1:19 AM) /2013 [facility] l Center HEMATOLOGY Hypochrom Slight None Seen 08/21 [place] (08/21/13 1:19 AM) Medica l Center HEMATOLOGY Atypical 0.0 <=0.0 % 08/21 [facility] Lymphs [facility] HEMATOLOGY Bands 0.0 0.0 - 11.0 08/21 [facility] BODY FLUIDS Bili BF Type Abdomn 08/15 [place] *NA* Medical (08/15/13 1:22 PM) Center BODY FLUIDS Bili BF 0.4 08/15 <sup>17</sup> Interpretive Medical Data: No Center established reference ranges. BODY FLUIDS Lymph BF 1 08/15 [facility] BODY FLUIDS Comment BF cells are 08/15 [facility] s disintegr Medical ashley, Center difficult to differenti ate. BODY FLUIDS Macrophage BF 4 08/15 [place] [facility] BODY FLUIDS Segs BF 95 08/15 <sup>20</sup> Interpretive Medical Data: No Center established reference ranges. BODY FLUIDS Clarity BF Marked Clear 08/15 [place] *ABN* /2013 Medical (08/15/13 1:22 PM) [place] BODY FLUIDS Color BF Brown Colorless 08/15 [place] *ABN* Medical (08/15/13 1:22 PM) [place] [id number] 08/15 <sup>18</sup> Interpretive Medical Data: No Center established reference [place]. [place] [id number] 08/15 <sup>19</sup> Interpretive Medical Data: No Center established reference ranges. BODY FLUIDS CellCnt BF Abdomn 08/15 [place] Type (08/15/13 1:22 PM) Medica l Center CHEM PANEL Total Protein 5.6 6.4 - 8.4 08/15 [place] [facility] CHEM PANEL B/C Ratio 9 6 - 25 08/15 [facility] CHEM PANEL Globulin 3.3 2.0 - 4.0 08/15 [facility] CHEM PANEL Albumin Lvl 2.3 3.5 - 5.0 08/15 [place] [facility] CHEM PANEL Alk Phos 86 39 - 136 08/15 [facility] CHEM PANEL AST 19 0 - 37 08/15 [facility] CHEM PANEL ALT 25 0 - 65 08/15 [facility] CHEM PANEL A/G Ratio 0.7 0.7 - 1.6 08/15 [facility] CHEM PANEL Bili Total 0.2 0.2 - 1.3 08/15 [facility] HEMATOLOGY PT 15.1 12.0 - 08/15 [place] 14.7 /2013 [facility] HEMATOLOGY INR 1.20 0.85 - 08/15 <sup>22</sup> [place] 1.17 Interpretive Medical Data: Center RECOMMENDED RANGES FOR PROTIME INR:
2.0-3.0 for most medical and surgical thromboemboli c states.
2.5-3.5 for artificial heart valves and recurrent embolism.<br/ >
INR SHOULD BE USED ONLY FOR PATIENTS ON STABLE ANTICOAGULANT THERAPY. HEMATOLOGY PTT 29.0 22.9 - 08/15 <sup>24</sup> [place] 35.8 Interpretive Medical Data: Heparin Center Therapeutic Range: 57 - 92 [place] BLOOD BANK Antibody Scrn Negative 08/14 [facility] as RESULTS (08/14/13 7:25 AM) [facility] BLOOD BANK ABO/Rh A POS 08/14 [facility] RESULTS /2013 [facility] URINE AND UA <=1.0 0.1 - 1.0 08/14 [facility] Urobilinogen mg/dL /2013 [facility] URINE AND UA Leuk Est Small Negative 08/14 [facility] *ABN* /2013 [facility] (08/14/13 6:13 AM) [place] URINE AND UA Nitrite Negative Negative 08/14 [facility] STOOL (08/14/13 6:13 AM) [facility] URINE AND UA WBC 15 0 - 5 08/14 [facility] STOOL /2013 [facility] URINE AND UA Sq Epi Many /LPF Few /LPF 08/14 [facility] STOOL [facility] URINE AND UA Mucus Few /LPF None Seen 08/14 [place] STOOL /LPF /2013 [facility] URINE AND UA RBC 56 0 - 2 08/14 [facility] STOOL [facility] URINE AND UA Jasper Yeast Many /HPF None Seen 08/14 [place] /HPF /2013 [facility] URINE AND UA Color Yellow Yellow 08/14 [facility] STOOL *NA* /2013 [facility] (08/14/13 6:13 AM) [place] URINE AND UA Turbidity Slight Clear 08/14 [facility] STOOL *ABN* Medical (08/14/13 6:13 AM) Center URINE AND UA Protein 50 mg/dL Negative 08/14 [facility] STOOL mg/dL [facility] URINE AND UA Spec Grav 1.039 <=1.030 08/14 [facility] URINE AND UA pH 5.5 5.0 - 8.0 08/14 [facility] URINE AND UA Ketones Negative Negative 08/14 [facility] STOOL mg/dL mg/dL [facility] URINE AND UA Glucose Negative Negative 08/14 [facility] STOOL mg/dL mg/dL [facility] URINE AND UA Bili Negative Negative 08/14 [facility] STOOL *NA* [facility] (08/14/13 6:13 AM) [place] URINE AND UA Blood Negative Negative 08/14 [facility] (08/14/13 6:13 AM) [facility] CHEM PANEL Bili Indirect 0.0 0.0 - 1.0 08/14 [facility] CHEM PANEL Bili Total 0.1 0.2 - 1.3 08/14 [facility] CHEM PANEL Bili Direct 0.1 0.0 - 0.3 08/14 [facility] CHEM PANEL Globulin 2.8 2.0 - 4.0 08/14 [facility] CHEM PANEL Total Protein 4.9 6.4 - 8.4 08/14 [facility] CHEM PANEL A/G Ratio 0.8 0.7 - 1.6 08/14 [facility] CHEM PANEL Albumin Lvl 2.1 3.5 - 5.0 08/14 [facility] CHEM PANEL Alk Phos 66 39 - 136 08/14 [facility] CHEM PANEL ALT 16 0 - 65 08/14 [facility] CHEM PANEL AST 14 0 - 37 08/14 [facility] HEMATOLOGY Atypical 0.0 <=0.0 % 08/13 [facility] Lymph [facility] HEMATOLOGY Plt Morph Normal 08/13 [facility] (08/13/13 4:22 AM) [facility] HEMATOLOGY Polychrom Slight None Seen 08/13 [facility] (08/13/13 4:22 AM) [facility] HEMATOLOGY Anisocyte 1+ None Seen 08/13 [place] *ABN* Medical (08/13/13 4:22 AM) Center HEMATOLOGY Bands 1.0 0.0 - 11.0 08/13 Medical Center HEMATOLOGY Polychrom Slight None Seen 08/12 [facility] (08/12/13 4:10 AM) Medical Center HEMATOLOGY Atypical 0.0 <=0.0 % 08/12 [place] [facility] HEMATOLOGY Elliptocyte Slight None Seen 08/12 [place] *[place]N* Medical (08/12/13 4:10 AM) Center HEMATOLOGY Toxic Gran Slight None Seen 08/12 [place] *ABN* [facility] (08/12/13 4:10 AM) Center HEMATOLOGY Large Plt Slight None Seen 08/12 [facility] *ABN* [facility] (08/12/13 4:10 AM) [place] HEMATOLOGY Bands 9.0 0.0 - 11.0 08/12 [facility] HEMATOLOGY Plt Morph Normal 08/11 [facility] (08/11/13 4:14 AM) [facility] Center HEMATOLOGY RBC Morph Normal 08/11 [facility] (08/11/13 4:14 AM) [facility] Center HEMATOLOGY RBC Morph Normal 08/10 [facility] (08/10/13 4:27 AM) [facility] Center HEMATOLOGY Plt Morph Normal 08/10 [facility] (08/10/13 4:27 AM) [facility] METAL Zinc Lvl 33 60 - 130 08/09 <sup>15</sup> Result Medical Comment: Zinc Center Confirmed by repeat analysis.<br/ >Test Performed at:
[facility], [address] [place] [address]
[place] [address] Vinita Gonzalez MD, FCAP METAL Copper Lvl 80 70 - 175 08/09 <sup>13</sup> Misael Result Medical Comment: Test Center Performed at:
[facility], [id number] [place] [address] [place] [address] Vinita Gonzalez MD, FCAP HEMATOLOGY Schistocyte Rare 08/09 Medical Center HEMATOLOGY Anisocyte 1+ None Seen 08/09 [place] *ABN* Medical (08/09/13 3:15 AM) Center HEMATOLOGY Elliptocyte Slight None Seen 08/08 [facility] *ABN* Medical (08/08/13 9:53 AM) Center HEMATOLOGY Large Plt Slight None Seen 08/08 *ABN* Medical (08/08/13 9:53 AM) Center CHEM PANEL Lgke-Zyxsb-Wf 0.8 4.3 OR 08/08 <sup>10</sup> M [facility] copherol LESS mg/L Result Medical Comment: Test Center Performed at:
[facility]<br/ >[address] [place] [address]
[place] [address] Ron Modi MD, PhD CHEM PANEL Alpha-Tocophe 12.6 5.7 - 19.9 08/08 <sup>9</sup> R [facility] rol esult Medical Comment: Center
Levels of alpha-tocophe rol <5 mg/L are consistent
with Vitamin E deficiency in adults. CHEM PANEL Bili Direct 0.1 0.0 - 0.3 08/08 [place] [facility] CHEM PANEL Bili Indirect 0.3 0.0 - 1.0 08/08 [place] [facility] SPECIAL Hgb A1C 7.9 <=5.6 % 08/08 [facility] CHEMISTRY Medical Center METAL Copper Lvl 82 70 - 175 08/08 <sup>14</sup> Result Medical Comment: Test Center Performed at:
[facility], [address] [place] [address] [place] [address] Vinita Gonzalez MD, FCAP METAL Zinc Lvl 35 60 - 130 08/08 <sup>16</sup> Result Medical Comment: Test Center Performed at:
[facility], [id number] [place] [address] [place] [address] Vinita Gonzalez MD, FCAP URINE AND UA <=1.0 0.1 - 1.0 08/07 [facility] [place] STOOL Urobilinogen mg/dL [facility] URINE AND UA Glucose 200 mg/dL Negative 08/07 [facility] STOOL mg/dL Medical [place] URINE AND UA Bili Negative Negative 08/07 [facility] STOOL *NA* [facility] (08/07/13 5:15 PM) [place] URINE AND UA Ketones 40 mg/dL Negative 08/07 [facility] STOOL mg/dL [facility] URINE AND UA Protein 100 mg/dL Negative 08/07 [facility] STOOL mg/dL [facility] URINE AND UA Bacteria Few /HPF None Seen 08/07 [place] /HPF /2013 [facility] URINE AND UA Mucus Few /LPF None Seen 08/07 [place] STOOL /LPF /2013 [facility] URINE AND UA WBC 6 0 - 5 08/07 [facility] STOOL [facility] URINE AND UA RBC 22 0 - 2 08/07 [facility] URINE AND UA Color Yellow Yellow 08/07 [facility] *NA* [facility] (08/07/13 5:15 PM) [place] URINE AND UA Spec Grav 1.018 <=1.030 08/07 [facility] URINE AND UA pH 5.5 5.0 - 8.0 08/07 [facility] STOOL [facility] URINE AND UA Turbidity Slight Clear 08/07 [facility] *ABN* [facility] (08/07/13 5:15 PM) [place] URINE AND UA Leuk Est Negative Negative 08/07 [facility] (08/07/13 5:15 PM) [facility] URINE AND UA Nitrite Negative Negative 08/07 [facility] (08/07/13 5:15 PM) [facility] URINE AND UA Blood Moderate Negative 08/07 [facility] *ABN* [facility] (08/07/13 5:15 PM) [place] URINE AND UA Sq Epi Moderate Few /LPF 08/07 [facility] STOOL /LPF /2013 Medical Center CHEM PANEL Vitamin B2 20.2 6.2 - 39.0 08/07 <sup>11</sup> M [facility] [place] Lvl Result Medical Comment: Test Center Performed at:
[facility]<br/ >[address] [facility]
[place] [address] Ron Modi MD, PhD CHEM PANEL VITAMIN B1 144 78 - 185 08/07 <sup>7</sup>R [facility] (THIAMINE) esult Medical WHOLE BLOOD Comment: Test Center Performed at:
[facility]<br/ >[address] [place] [address]
[place] [address] Ron Modi MD, PhD AMINO ACID MMA Qnt 245 87 - 318 08/07 <sup>12</sup> Misael Result Medical Comment: Test Center Performed at:
[facility]<br/ >[address] [place] [address]
[place] [address] Ron Modi MD, PhD ANEMIA Transferrin 73 212 - 360 08/07 [facility] ANEMIA UIBC 74 110 - 370 08/07 [facility] ANEMIA % Satur Fe 9 12 - 57 08/07 [facility] ANEMIA TIBC 81 228 - 428 08/07 [facility] ANEMIA Iron 7 30 - 160 08/07 [facility] ANEMIA Folate Lvl 21.9 >=3.0 08/07 [facility] ng/mL [facility] ANEMIA Vitamin B12 666 254 - 1320 08/07 [facility] Lvl [facility] CHEM PANEL Vitamin B6 3.8 2.1 - 21.7 08/07 <sup>8</sup>R [facility] esult Medical Comment: Center
Conversi on Factor: Nanograms/mL x 4.046 =
nanomol es/L
Test Performed at:
[facility]<br/ >[address] [place] [address]
[place] [address] Ron Modi MD, PhD HEMATOLOGY Microcyte 1+ None Seen 08/07 [place] *ABN* Medical (08/07/13 12:43 AM) Center HEMATOLOGY Macrocyte 1+ None Seen 08/07 [facility] *ABN* Medical (08/07/13 12:43 AM) Center HEMATOLOGY Myelocytes 1.0 <=0.0 % 08/07 [facility] IMMUNOLOGY Prealbumin <3.0 18.0 - 08/07 [facility] 45.0 /2013 [facility] IMMUNOLOGY C-REACTIVE 274.0 <=2.9 mg/L 08/07 [facility] PARATHYROID Ca Norm WB 1.20 1.05 - 08/07 [facility] PROFILE 1.25 [facility] PARATHYROID Ca Ion WB 1.23 1.05 - 08/07 [facility] PROFILE 1.25 [facility] THYROID TSH 1.350 0.360 - 08/07 [facility] PANEL 3.740 [facility] CHEM PANEL Lactic Acid 1.4 0.5 - 2.2 08/06 [facility] Lvl /2013 [facility] URINE AND UA Gran Cast 15 08/06 [facility] STOOL [facility] URINE AND UA CaOx Zahra Occasional None Seen 08/06 [place] STOOL /HPF /HPF [facility] URINE AND UA Amorph Occasional None Seen 08/06 [facility] STOOL Zahra /HPF /HPF /2013 [facility] URINE AND UA Hyal Cast 88 0 - 2 08/06 [facility] URINE AND UA Renal Epi 2 <=0 /LPF 08/06 [facility] STOOL [facility] URINE AND UA Bacteria Occasional None Seen 08/06 [place] /HPF /HPF /2013 [facility] BACTERIAL - MRSA by PCR Negative 25 08/06 <sup>25</sup > [facility] SEROLOGY (08/06/13 12:29 AM) Interpretive Medical Data: Center Interpretive Data: The Kathy LightCycler MRSA assay is a qualitative test for the direct detection of nasal colonization with methicillin-r esistant Staphylococcu s aureus (MRSA) to aid in the prevention and control of MRSA infections in healthcare settings. A positive result does not indicate an infection or require treatment. A negative result does not exclude colonization or infection.

The polymerase chain reaction (PCR) assay detects a proprietary sequence indicative of the integration of the SCCmec cassette into the Staphylococcu s aureus chromosome, indicating the presence of MRSA DNA. The assay utilizes FDA cleared IVD reagents. Performance characteristi cs have been verified by the [facility] within the [facility]. The [facility] is authorized under the Clinical Laboratory Improvement Amendment of 1988 (CLIA-88) to perform high complexity testing. HEMATOLOGY K-time 1.1 0.6 - 2.3 08/06 [facility] HEMATOLOGY R-time 0.7 0.4 - 0.7 08/06 [facility] HEMATOLOGY [place] 0.5 08/06 [facility] HEMATOLOGY ACT (TEG) 113 86 - 118 08/06 [facility] HEMATOLOGY Rapid TEG Citrated 08/06 [facility] Sample Type [facility] Blood [place] HEMATOLOGY G-value 12.9 5.0 - 11.6 08/06 [facility] HEMATOLOGY Angle 75 64 - 80 08/06 [facility] HEMATOLOGY Estimated % 1.0 0.0 - 7.5 08/06 [facility] Lysis [facility] HEMATOLOGY Max Amp 72 52 - 71 08/06 [facility] HEMATOLOGY Brickeys Cell Slight None Seen 08/06 [facility]* [facility] (08/06/13 12:29 AM) [place] HEMATOLOGY Microcyte 1+ None Seen 08/06 [facility]* [facility] (08/06/13 12:29 AM) [place] HEMATOLOGY Elliptocyte Occl 08/06 [facility] HEMATOLOGY Acanthocyte Slight None Seen 08/06 [facility] *ABN Medical (08/06/13 12:29 AM) [place] PARATHYROID Ca Norm WB 1.11 1.05 - 08/06 [facility] PROFILE 03.31 [facility] PARATHYROID Ca Ion WB 1.12 1.05 - 08/06 [facility] 03.31 [facility] CHEM PANEL Lactic Acid 3.0 0.5 - 2.2 08/06 [facility] Lvl [facility] PARATHYROID Ca Ion WB 1.15 1.05 - 08/06 [facility] PROFILE 03.31 [facility] PARATHYROID Ca Norm WB 1.13 1.05 - 08/06 [facility] 03.31 [facility] Pathology Reports No Data Provided for This Section Diagnostic Reports Report Value Date Source Esophagus barium EXAM: FLUOROSCOPY MODIFIED BARIUM SWALLOW 09/14 [facility] swallow Center DATE: September 14, 2013 at 1053. INDICATION: Dysphasia. ADDITIONAL INFORMATION: 58-y ear-old woman status post placement of anterior spinal fixation hardware. COMPARISON: September 03, 2013. TECHNIQUE: Oral barium cont rast of differing consistencies was given to the patient to assess swallowing mechanism. The study was performed in conjunction with speech pathology. FLUOROSCOPY TIME: 3:06 min. FINDINGS: The patient was given thin, nectar, and pudding consistency barium contrast. Oral bolus size was small. The swallowing reflex is triggered promptly however the bolus propulsion was incompletely effective. Thin barium with straw: Ther e is silent aspiration with thin liquids which is cleared with coughing. [place] thickened barium with a straw: There is deep penetration with nectar consistency with difficulty in clearance. Pudding barium with spoon: N o penetration or aspiration. However there is severe residue in the vallecula and piriform sinuses after swallowing that is in adequately cleared with subsequent swallowing. IMPRESSION: 1. Silent aspiration with thin liquids. 2. Deep penetration with nectar consistency with difficulty in clearance. 3. Severe pooling of pudding consistency barium in the vallecula and piriform sinuses that is inadequately cleared. Spine cervical wo EXAM: CT cervical spine without contrast. 03/2013 [facility] contrast CT Center INDICATION: Swelling, dysphagia status post ACDF . COMPARISON: CT August 22, 2013. TECHNIQUE: Noncontrast axial imaging of the cervical spine was performed. Coronal and sagittal reconstructions were performed. DISCUSSION: Postoperative ch anges of anterior cervical fusion from C3 to C4 and from C5 to C6 are redemonstrated. Disc spacers at C3-C4 and C5-C6 are in stable alignment. There is stable satisfactory al ignment of the hardware. Int erval resolution of previously demonstrated air within the prevertebral soft tissues. Edematous changes within the prevertebral soft tissues are evident from C3 to C5. Mild mass effect upon the posterior pharyngeal wall. IMPRESSION: No change in satisfactory al ignment of anterior cervical fusion hardware from C3-C4 and C5-C6. Interval resolution of air w ithin the prevertebral soft tissues with edematous changes in the prevertebral soft tissues extending from C3 to C5 causing mild mass effect upon the posterior pharyngeal wall. Esophagus barium EXAM: FLUOROSCOPY MODIFIED BARIUM SWALLOW 09/03 [facility] swallow function video Center (Rad) DATE: 09/03/2013, 1011 hours. INDICATION: Dysphagia. ADDITIONAL INFORMATION: 58-y ear-old woman status post placement of anterior spinal fixation hardware. COMPARISON: Modified barium swallow, August 28 TECHNIQUE: Oral barium cont rast of differing consistencies was given to the patient to assess swallowing mechanism. The study was performed in the presence of speech pathology. FLUOROSCOPY TIME: 1:13. FINDINGS: Again noted is prevertebral soft tissue swelling, minimally decreased from the comparison exam. Spinal fixation hardware is unchanged. The patient was given thin, nectar and pudding consistency barium contrast. There was poor posterior control with slippage of contrast. Oral bolus size was small. There is aspiration of contrast of thin and nectar consistency. Stephanie lecular pooling occurred with pudding without aspiration or penetration. There was again, impaired opening of the upper esophageal sphincter. IMPRESSION: 1. Jaswinder asymptomatic aspiration with thin and n ectar consistency barium. 2. Marked vallecular pooling with pudding consis tency contrast. 3. Impaired relaxation of the cricopharyngeus mu scle. Chest 1view EXAM: CHEST 1 VIEW 08/28/2013 [facility] DATE: Aug 28, 2013 07:58:00 PM INDICATION: Abnormal chest sounds COMPARISON: Chest one view 08/23/2013. TECHNIQUE: Single portable semierect AP view of the chest. FINDINGS: PICC is unchanged in positio n. The cardiomediastinal silhouette is unchanged. Lungs and pleura are clear. IMPRESSION: Unremarkable radiograph of the chest. Esophagus barium EXAM: FLUOROSCOPY MODIFIED BARIUM SWALLOW 08/28 [facility] swallow function video Center (Rad) DATE: 08/28/2013, 0955 hours. INDICATION: Dysphagia. ADDITIONAL INFORMATION: 58-y ear-old female status post anterior spinal fixation.. COMPARISON: None. TECHNIQUE: Oral barium cont rast of differing consistencies was given to the patient to assess swallowing mechanism. The study was performed in the presence of speech pathology. FLUOROSCOPY TIME: 1:47 min. FINDINGS: Prevertebral soft tissues de monstrate postoperative swelling.The patient was given thin, nectar, honey, and pudding consistency barium contrast. Patient swallowed using numerous small boluses. Aspiratio n was observed with all cons istencies and was only intermittently symptomatic. There is apparent impaired to upper esophageal sphincter relaxation. Esophageal motility and emptying appeared normal . IMPRESSION: 1. Postsurgical prevertebral soft tissue swellin g. 2. Aspiration of oral barium contrast with all consistencies from thin to pudding which was only intermittently symptomatic. 3. Impaired upper esophageal sphincter relaxatio n. 4. Please see detailed [facility] pathology report for additional findings and recommendations. Chest 1view Chest one view, August 23, 2013 at 9:46 a.m. 08/23 [facility] HISTORY: 58-year-old female with coughing. FINDINGS: Comparison is made to August 17. The cardiomediastinal silhou ette is stable. A right-sided PICC line remains in place. There is platelike atelectasis in the bilateral lower lobes. The costophrenic sulci are sharp, without effusions. IMPRESSION: No significant change from August 17. Spine cervical wo EXAM: CT CERVICAL SPINE WITHOUT CONTRAST 08/22 [facility] contrast CT Center DATE: 08/22/2013 at 1938 hours. INDICATION: Weakness. COMPARISON: MR of the cervical spine from 08/11/19 14. TECHNIQUE: Volumetric acqui sition of the cervical spine is obtained without contrast. 2mm axial, sagittal and coronal reconstructions are provided. DISCUSSION: Interval anterio r cervical fusion of C3-C4 and C5-C6 with intervertebral body disc spacers is observed. No evidence of hardware failure is identified. Postsurgical changes including improved cervical alignment, air wit hin the neck, and posterior vertebral body scalloping are noted. No fluid collection is identified. An anterior osteophyte complex is observed involving C5-C6. IMPRESSION: Normal postsurgical appearance from anterior cervical fusion. Chest 1view EXAM: XR CHEST, 1 VIEW 08/17/2013 [facility] DATE: 08/17/2013 at 1657 hours. INDICATION: PICC placement. COMPARISON: 08/07/2013. FINDINGS: Mild cardiomegaly is improved. Right upper lobe opacities have cleared. Subsegmental atelectasis is present in the right mid and lower lung field. The remainder the lungs are clear. No pneumo thorax or pleural effusion i s seen. Tip of the right upper extremity PICC projects over the distal superior vena cava. IMPRESSION: 1. Subsegmental right mid and lower lung subsegm ental atelectasis. 2. Tip of the right upper ex tremity PICC projects over the distal superior vena cava. Gallbladder scan HIDA w Hepatobiliary scan with more for sti mulation, 08/15/2013 [facility] Aug 15, 2013 04:20:12 PM CLINICAL INDICATION: Abdominal pain, evaluate fo r gallbladder disorders. TECHNIQUE: After the intravenous admin istration of 5.1 mCi of technetium 99m Choletec, dynamic blood flow images followed by sequential static images through 60 minutes were obtained. Subsequently 2.5 mg morphine sulfate was administered in travenously over 3 minutes and additional images were obtained for another 30 minutes. FINDINGS: There is good tracer uptake in the liver with homogeneous distribution. The liver appears normal in size and shape. There is timely excretion of tracer into the extrahepatic biliary tree, and bowel. How ever the gallbladder was not visualized throughout the study even after morphine stimulation. These findings are consistent with the diagnosis of acute cholecystitis. IMPRESSION: Nonvisualization of the gall bladder even after morphine stimulation consistent with the diagnosis of acute cholecystitis. Abdomen Abscess w PROCEDURE: CT-GUIDED DRAIN PLACEMENT. 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 Given persistent leukocytosis, the patient underwent a CT which demonstrated a pericholecystic fluid emilee ection in the setting of an abnormal gallbladder . PHYSICIANS: Dr. Dirk Mc, Dr. Maikel Moore. Dr. Lorne Acevedo, the attending physician, was present for the procedure and its imaging. MEDICATIONS: Analgesia was a chieved with fentanyl 50 mcg IV administered by the radiology nurse under the supervision of Dr. Acevedo. Procedure time was 0 minutes, monitored all times by radiology nursing staff. TECHNIQUE AND FINDINGS: Informed written consent was obtained. The patient was then brought to the procedure suite, placed in the supine position, and a timeout was performed. A lidocaine 1% was used for local analgesia. Un raine intermittent CT guidance , an 18-gauge Chiba needle was advanced into the right upper quadrant fluid collection. Cloudy brown fluid was aspirated. A Schrader wire was then advanced in the collection, an d the needle was removed. Fo llowing appropriate over the wire dilation, a 10 Luxembourgish drainage catheter was advanced into and formed within the collection. The drain was sutured to the patient's skin with 2-0 Prolene. A tot al of 35 mL of cloudy brown fluid was aspirated and sent for analysis. Post CT images demonstrated no immediate complication with near-complete aspiration of the fluid collec tion. A sterile dressing was applied. The patient appeared to tolerate the procedure well. IMPRESSION: CT-guided placement of a rig ht upper quadrant pericholecystic 10 Luxembourgish percutaneous drainage catheter with most of the collection aspirated at the time of the procedure. A total of 35 mL of cloudy brown fluid were sent for analysis. Abdomen RUQ US EXAM: US ABDOMEN LIMITED 08/14/2013 [facility] DATE: 08/14/2013 at 1531 hours INDICATION: Abdominal pain. ADDITIONAL INFORMATION: Conc nico for gallbladder perforation on CT abdomen dated 08/13/2013. COMPARISON:CT abdomen dated 08/13/2013. TECHNIQUE: Multiplanar lino ester and color Doppler ultrasound images of the RUQ abdomen were obtained. FINDINGS: Liver demonstrates normal ec hogenicity without masses. Right hepatic lobe measures 16.8 cm at the midclavicular line. Main portal vein is 1.2 cm with hepatopetal flow. Gallbladder is distended and contains or sludge and calculi. There is no disruption of the gallbladder wall to suggest perforation. Gallbladder wall thickness is 4.3 mm. There is pericholecystic fluid. No sonographic Ramírez's sign. Visualized portions of the i ntrahepatic biliary tree are of normal caliber. Common duct is Abdominal aorta is of normal caliber. Inferior vena cava unremarkable where visualized. The urinary bladder was not imaged. IMPRESSION: 1. No gallbladder wall perforation. 2. Slightly overdistended ga llbladder containing sludge, calculi with diffusely thickened wall and pericholecystic fluid. Acute cholecystitis is not excluded, recommend HIDA scan for further evaluation. Abdomen/Pelvis w IV EXAM: CT ABDOMEN AND PELVIS WITH IV CONTRAST 08/13/2013 [facility] Center DATE: Aug 13, 2013 05:00:00 PM INDICATION: Abdominal distention. Additional history: Status p ost Devin-en-Y gastric bypass on 09/28/2011 and lysis of adhesions on 08/02/2013. Had exploratory laparoscopy with omentectomy, G-tube placement, wound Vac placement on 08/05/2013 due to portal venous gas and pneumatosis. COMPARISON: None TECHNIQUE: Helical acquisiti on of the abdomen and pelvis was obtained from the lung bases to the symphysis pubis after administration of IV and gastrointestinal contrast in the venous and delayed phases of contrast enhancement. Axial, sagitta l and coronal images were interpreted. FINDINGS: There is mild subsegmental a telectasis of the lung bases. There is no pleural effusion. There is no pericardial effusion. The spleen, right adrenal an d pancreas are grossly unremarkable. There is nodularity in the left adrenal gland. There is mild central biliary ductal dilatation. The gallbladder is distended with pericho lecystic fluid and irregular ity of the gallbladder wall. Linear areas of enhancement are seen along the gallbladder wall with a suggestion of gallbladder wall discontinuity. There is also a small amount of hyperdense fluid layerin g dependently within the gallbladder. Pericholecystic fluid is seen. The stomach is decompressed with a PEG tube in place. There are contrast-filled loops of small bowel measuring large as 3.6 cm. No definite small bowel obstruction is identified. There is a large amount of stool and gas seen throu ghout the colon, predominantly in the ascending colon. Postsurgical changes are seen in the stomach and small bowel, consistent with the history of gastric bypass surgery. A small amount of perihepati c, perisplenic and interloop free fluid is identified. There is also a small amount of free fluid layering in the pelvis. A triangular-shaped fluid co llection is seen deep to the right rectus abdominis muscle on images 58 through 75 of series 5 along the inferior margin of the liver. It measures 3.4 x 6.1 x 5.5 cm in AP by transverse by craniocaudal dimensions. There are hypodensities in t he kidneys bilaterally that likely represent cysts. Ham Sawyer example is seen on image 37 of series 10 in the right kidney that measures 1.5 cm in diameter. Representati ve example in the left kidne y is seen on image 25 of series 6 and be and measures 0.4 cm in diameter.. There is brisk and normal excretion of contrast into the collecting systems, ureters and bladder. A small amount of air is seen within the urinary bladder. The regional organs of reproduction are unremark able. There is no lymphadenopathy. Vascular calcifications are seen within the aort a and iliac vessels. Mild degenerative disc disea se is seen in the lower lumbar spine. There are there is diffuse soft tissue swelling. A small focus of subcutaneous air is seen the right anterior abdominal wall. IMPRESSION: 1. Distended gallbladder wit h pericholecystic fluid and some irregularity in the gallbladder wall. There is a suggestion of sloughed membranes and possible perforation. Recommend correlation with right upper quadrant ultrasound. D iscussed with Dr. Davis at approximately 1150, 08/14/13 2. No definite small bowel o bstruction. Stool and gas are seen throughout the colon which may represent ileus. 3. Triangular-shaped fluid c ollection deep to the right rectus abdominis muscle, inferior to the liver. 4. Bilateral renal cysts 5. Small amount of ascites 6. Small amount of air withi n the urinary bladder is likely related to recent Han catheter placement. 7. Diffuse anasarca Ext Lower Venous VENOUS DOPPLER ULTRASOUND BILATERAL LOWE R EXTREMITY: 08/12/2013 [facility] [employer] Doppler Bilat US Center CLINICAL INDICATION: Pain TECHNIQUE: The veins of the bilateral lower extremities were evaluated with grayscale, color-flow and spectral Doppler ultrasound. FINDINGS: The bilateral comm on femoral , superficial femoral, and popliteal veins demonstrate normal compressibility and color Doppler signal. IMPRESSION: Negative for DVT in the bilateral lo wer extremities . Spine cervical wo EXAM: MRI of the cervical spine without contra st 08/10/2013 [facility] contrast MRI Center DATE: August 10, 2013 11:28:00 PM CLINICAL HISTORY: Numbness. COMPARISON: None available. TECHNIQUE: Sagittal and axial unenhanced images of the cerv ical spine were obtained. FINDINGS: The visualized portion of th e posterior fossa is unremarkable. The craniocervical junction is unremarkable. Mild osteoarthritic changes are seen at the C1-C2 articulation. The cervical vertebral bodies are normal in height. There is minimal retrolisthesis of C5 on C6 by 1 to 2 mm. There is mild straightening of the normal cervical lordosis. The cervical vertebral bodies are otherwise normal in alignment. Multilevel degenerative changes are noted. C2-C3: No significant spinal canal or neural foraminal stenosis. Minimal 2 mm disc bulge/protrusion lateralizing to the left paracentral zone. C3-C4: Moderate loss of disc height with endplate osteophytes. Posterior disc extrusion lateralizing to the left paracentral/subarticular zone that measures 6 to 7 mm AP and extends 10 mm craniocaudal. It indents the ventral surfa ce of the cervical cord with severe spinal canal stenosis. Associated T2 hyperintense signal is seen in the cervical cord concerning for myelomalacia/myelopathy. Bilateral un covertebral and facet hypert rophy. Moderate to severe left and mild right neural foraminal stenosis. C4-C5: 2 to 3mm disc bulge/b road-based protrusion partially effaces the ventral CSF space and mildly narrows the spinal canal. Mild endplate osteophytes. Right greater than left uncovertebral hypertroph y. Moderate to severe right neural foraminal kina nosis. C5-C6: Moderate to severe lo ss of disc height with endplate osteophytes. 3 to 4 mm posterior disc protrusion and osteophyte complex lateralizes slightly to the left paracentral zone. It effaces the vent ral CSF space and mildly ind ents the ventral surface of the cord. Moderate spinal canal stenosis. T2 hyperintense signal is seen in the right greater the left aspects of the cord and is concerning for m yelomalacia/myelopathy. Bila teral uncovertebral hypertrophy. Moderate left and mild right neural foraminal stenosis. C6-C7: Minimal 1 to 2 mm dis c bulge. Endplate osteophytes. No significant spinal canal or neural foraminal stenosis. C7-T1: No significant spinal canal or neural for aminal stenosis. The paraspinous musculature is unremarkable. IMPRESSION: 1. Multilevel degenerative change. Findings are most significant at C3-C4 and C5-C6. 2. C3-C4: Posterior disc ext rusion lateralizing to the left paracentral/subarticular zone that measures 6-7 mm AP and extends 10 mm craniocaudal. It indents the ventral surface of the cervical cord with severe spinal canal stenosi s. Associated T2 hyperintense signal is seen in the cervical cord consistent with compressive myelomalacia/myelopathy. Moderate to severe left foraminal stenosis. 3. C5-C6: 3 to 4 mm posterio r disc protrusion and osteophyte complex lateralizes slightly to the left paracentral zone. It mildly indents the ventral surface of the cord. Moderate spinal canal stenosis. T2 hyperintense signal in t he cord and is concerning for compressive myelomalacia/myelopathy. Moderate left neural foraminal stenosis. 4. Uncovertebral and facet h ypertrophy result in neural foraminal stenoses most severe on the left at C3-C4, right at C4-C5 and to a lesser extent on the left at C5-C6. Consultation Notes No Data Provided for This Section Discharge Summaries No Data Provided for This Section History and Physicals No Data Provided for This Section Vital Signs Vital Sign Value Date Comments Source Temperature Oral (F) 98 F 09/13/2018 [facility] Respitory Rate 16 09/13/2018 [facility] Heart Rate 99 09/13/2018 [facility] Systolic (mm Hg) 168 09/13/2018 [facility] Center Diastolic (mm Hg) 99 09/13/2018 [facility] Center BMI Calculated 27.66 09/13/2018 [facility] Weight 73.5 09/13/2018 [facility] Height 163 cm 09/13/2018 [facility] BMI Calculated 27.79 11/24/2016 [facility] Height 167.64 cm 11/24/2016 [facility] Weight 78.091 11/24/2016 [facility] Heart Rate 59 11/24/2016 [facility] Respitory Rate 18 11/24/2016 [facility] Systolic (mm Hg) 133 11/24/2016 [facility] dical Center Diastolic (mm Hg) 79 11/24/2016 [facility] Center Temperature Oral (F) 97.7 F 11/24/2016 [facility] BMI Calculated 28.77 06/09/2016 [facility] Weight 79.273 06/09/2016 [facility] Temperature Oral (F) 97.7 F 06/09/2016 [facility] Systolic (mm Hg) 164 06/09/2016 [facility] Center Diastolic (mm Hg) 94 06/09/2016 [facility] Center Heart Rate 91 06/09/2016 [facility] Respitory Rate 18 06/09/2016 [facility] Height 166 cm 06/09/2016 [facility] Weight 78.818 02/11/2016 [facility] BMI Calculated 28.6 02/11/2016 [facility] Height 166 cm 02/11/2016 [facility] Heart Rate 73 02/11/2016 [facility] Respitory Rate 18 02/11/2016 [facility] Systolic (mm Hg) 144 02/11/2016 [facility] dical Center Diastolic (mm Hg) 77 02/11/2016 [facility] Center Temperature Oral (F) 97.5 F 02/11/2016 [facility] Weight 71.636 08/13/2015 [facility] BMI Calculated 26 08/13/2015 [facility] Respitory Rate 18 08/13/2015 [facility] Height 166 cm 08/13/2015 [facility] Systolic (mm Hg) 153 08/13/2015 [facility] Center Diastolic (mm Hg) 76 08/13/2015 [facility] Heart Rate 54 08/13/2015 [facility] Height 166.5 cm 01/22/2015 [facility] Weight 70.7 01/22/2015 [facility] BMI Calculated 25.5 01/22/2015 [facility] Systolic (mm Hg) 171 01/22/2015 [facility]ical Center Diastolic (mm Hg) 87 01/22/2015 [facility] Temperature Oral (F) 96.3 F 01/22/2015 [facility] Heart Rate 65 01/22/2015 [facility] Respitory Rate 19 01/22/2015 [facility] Systolic (mm Hg) 154 10/30/2014 [facility]ical Center Diastolic (mm Hg) 75 10/30/2014 [facility] Temperature Oral (F) 96.7 F 10/30/2014 [facility] Respitory Rate 16 10/30/2014 [facility] Heart Rate 69 10/30/2014 [facility] Height 165.6 cm 10/30/2014 [facility] BMI Calculated 26.24 10/30/2014 [facility] Weight 71.96 10/30/2014 [facility] Weight 149 08/08/2014 [facility] Height 54 08/08/2014 [facility] Temperature Oral (F) 98.1 F 08/08/2014 [facility] Heart Rate 76 08/08/2014 [facility] Systolic (mm Hg) 143 08/08/2014 [facility] Diastolic (mm Hg) 83 08/08/2014 [facility] Weight 127.7 02/14/2014 [facility] Height 54 02/14/2014 [facility] Temperature Oral (F) 97.9 F 02/14/2014 [facility] Respitory Rate 16 02/14/2014 [facility] Heart Rate 78 02/14/2014 [facility] Systolic (mm Hg) 170 02/14/2014 [facility] Diastolic (mm Hg) 86 02/14/2014 [facility] Diastolic (mm Hg) 80 09/05/2013 [facility] Respitory Rate 20 09/05/2013 [facility] Systolic (mm Hg) 123 09/05/2013 [facility] Temperature Oral (F) 97.6 F 09/05/2013 [facility] Heart Rate 98 09/05/2013 [facility] Diastolic (mm Hg) 69 09/05/2013 [facility] Systolic (mm Hg) 114 09/05/2013 [facility] Heart Rate 89 09/05/2013 [facility] Respitory Rate 20 09/05/2013 [facility] Temperature Oral (F) 98.5 F 09/05/2013 [facility] Respitory Rate 19 09/05/2013 [facility] Systolic (mm Hg) 129 09/05/2013 [facility] Diastolic (mm Hg) 72 09/05/2013 [facility] Temperature Oral (F) 98.4 F 09/05/2013 [facility] Heart Rate 94 09/05/2013 [facility] Weight 57.33 08/31/2013 [facility] Weight 66.818 08/06/2013 [facility] Height 167.64 cm 08/06/2013 [facility] BMI Calculated 23.78 08/06/2013 [facility] Encounters Location Location Encounter Encounter Reason Attending ADM DC Stat us Source Details Type Number For Provider Date Date Visit [facility] [id number] Adryan 08/06 09/05 Damien Mata /2013 [facility] Outpatient [id number] Pranay 09/14 09/15 Damien Bolaños Sr /2013 [id number] Diallo 02/14 02/14 Mis [facility] Visit [id number] Kumar HERNANDEZ /2013 N euro [facility] Outpt Diag [id number] Diallo 02/14 02/15 [facility] Kumar /2013 [facility] [id number] Diallo 08/08 08/08 Mis luis angel [facility] Visit [id number] Kumar HERNANDEZ /2014 N euro e [facility] Outpt Diag [id number] Diallo 08/08 08/09 [facility] Kumar /2014 Her pen[facility] Bedded [id number] Pranay 10/11 10/11 [facility] Bolaños Sr /2014 [facility] Outpatient [id number] Pranay 10/30 10/31 [facility] Bolaños Sr /2014 [facility] Outpatient [id number] Joleen 01/22 01/23 [facility] Aron /2014 Medical Oncology [facility] Outpatient [id number] Joleen 08/12 08/13 [facility] Aron /2015 [facility] Recurring [id number] Joleen 02/10 03/12 [facility] Aron /2015 [facility] Oncology [facility] Recurring [id number] Joleen 06/09 07/09 [facility]ron /2016 [facility] Oncology [facility] Recurring [id number] Joleen 11/24 12/24 [facility] Aron /2016 [facility] Oncology [facility] Recurring [id number] [facility]oleen 08/30 [facility] Procedures Procedure Code Date Perfomer Comments Source Gastric bypass [id number] [facility] Laparoscopy [id number] [facility] Assessment and Plan Assessment and Plan Date Source Extracted from:Title: general surgery progress note 014 [facility] Author: Maikel Newberry MD Date: 09/04/13 Patient: RUDOLPH ANNE Age: 58 years Sex: Female : 1955 Associated Diagnoses: None Author: Maikel Newberry MD Subjective No acute events. Review of Systems Constitutional: No fever, No chills, No fatigue. Eye: No recent visual problem, No blurring, No double visio n. Ear/Nose/Mouth/Throat: No decreased hea ring, No nasal congestion, No sore throat. Respiratory: No shortness of breath, No cough, No hemoptysi s, No wheezing. Cardiovascular: No chest pain, No palpitations, No syncope. Gastrointestinal: No nausea, No vomiting, No constipation. Genitourinary: No dysuria, No hematuria, No urethral discha rge. Hematology/Lymphatics: No bruising tend ency, No bleeding tendency, No swollen lymph glands. Immunologic: No recurrent fevers, No malaise. Integumentary: No rash, No pruritus, No skin lesion. Neurologic: No confusion, No numbness, No tingling, No head ache. Health Status Allergies: Allergic Reactions (All) Severity Not Documented Codeine- No reactions were documented. Darvocet A500- No reactions were documented. Lisinopril- No reactions were documented. Objective Meds Scheduled Meds (12):acetaminophen-hydroc odone (acetaminophen-hydrocodone 300 mg- 10 mg/15 mL oral liquid), amLODIPine (Norvasc), gabapentin (gabapentin 250 mg/5 mL oral solution), heparin, levothyroxine, menthol-zinc oxide topical (Calmoseptin e topical ointment), metFORMIN, multivitamin with minerals, (Suspended) polyethylene glycol 3350 (MiraLax), sodium chloride (Saline Flush 0.9%), sodium chloride (Saline Flush 0.9%), zinc sulfate Unscheduled Meds (1):lidocaine (lidocaine 1%) PRN Meds (14):Dextrose 50% in Water IV ( Dextrose 50% Syringe), Dextrose 50% in Water IV (Dextrose 50% Syringe), Insulin regular, Insulin regular, Insulin regular, Insulin regular, Insulin regular, aceta minophen-hydrocodone (acetaminophen-hydr ocodone 300 mg-10 mg/15 mL oral liquid), benzocaine-menthol topical, diazepam (Valium), glucagon, menthol-zinc oxide topical (Calmoseptine), morphine Sulfate, phenol topical (Chloraseptic 1.4% spray) One Time Meds (1):(Completed) magnesium sulfate Continuous Infusions (2):LVP solution wi th potassium 1,000 mL (1/2NS + KCL 20mEq/L 1000ml (Premix) 1,000 mL), Sodium Chloride 0.9% IV 250 mL (Sodium Chloride 0.9% (titrate) 250 mL) I&O Input/Output Record In Out Bal 09/04 24hr Tot 108 400 -292 09/03 24hr Tot 1996 [id number] VS/Measurements Measurements from flowsheet : Measurements 08/28/2013 09:41 Height in Feet 5 ft Weight in Pounds 147 lb , Vitals Signs (last 24 hrs) Last Charted Minimum Maximum Temp 98.4 (SEP 04 19:55) 98.4 (SEP 04 19:55) 98.2 (SEP 04 00:18) Heart Rate 86 (SEP 04 19:55) 86 (SEP 04 00:18) 98 (SEP 04 08:00) Resp Rate 18 (SEP 04 16:00) 18 (SEP 04 00:18) 20 (SEP 04 05:19) SBP 109 (SEP 04 19:55) 101 (SEP 04 12:00) 130 (SEP 04 08:00) DBP 66 (SEP 04 19:55) 63 (SEP 04 12:00) 76 (SEP 04 08:00) General: Alert and oriented, No acute distress. Eye: Pupils are equal, round and reacti ve to light, Extraocular movements are intact. Respiratory: Lungs are clear to auscultation, Breath sounds are equal. Cardiovascular: Normal rate, Regular rhythm, No murmur, No gallop. Gastrointestinal: Soft, Non-distended, Normal bowel sounds. Neurologic: Alert, Oriented, Normal motor function. Review / Management Results review: Labs (Last four charted values) WBC 5.3 (SEP 04) 8.3 (SEP 02) 8.3 (SEP 01) 7.1 (AUG 31) Hgb L 10.4 (Sep) L 7.9 (SEP 02) L 8.2 (SEP 01) L 7.3 (AUG 31) Hct L 32.0 (Sep) L 24.2 (SEP 02) L 25.1 (SEP 01) L 23.4 (AUG 31) Plt 417 (SEP 04) H 536 (SEP 02) H 579 (SEP 01) H 487 (AUG 31) Na 142 (SEP 04) 140 (SEP 02) 143 (SEP 01) 141 (AUG 31) K 4.8 (SEP 04) 4.4 (SEP 02) 5.0 (SEP 01) 4.5 (AUG 31) CO2 27 (SEP 04) 27 (SEP 02) 27 (SEP 01) 25 (AUG 31) Cl 105 (SEP 04) 106 (SEP 02) 107 (SEP 01) 107 (AUG 31) Cr 0.9 (SEP 04) 0.9 (SEP 02) 0.9 (SEP 01) 1.0 (AUG 31) BUN 15 (SEP 04) 13 (SEP 02) 10 (SEP 01) L 6 (AUG 31) Glucose Random H 209 (SEP 04 ) H 191 (SEP 02) H 165 (SEP 01) H 239 (AUG 31) Mg L 1.7 (SEP 04 ) 1.8 (SEP 02) 2.3 (AUG 28) L 1.6 (AUG 27) Phos 2.9 (SEP 04) L 2.0 (SEP 02) 3.3 (AUG 28) 3.4 (AUG 27) Ca 9.3 (SEP 04) 9.6 (SEP 02) 9.4 (SEP 01) 9.1 (AUG 31) PT 13.9 (AUG 22) H 15.1 (AUG 05) INR 1.08 (AUG 22) H 1.20 (AUG 05) PTT 32.6 (AUG 22) 29.0 (AUG 15) . Impression and Plan The patient was seen and examined by me with the resident/HAND FLATWORK FINISHER/PA and I agree with the History/Exam documented. - Nutrition: NPO secondary to failed swa llow eval, change tube feeds to bolus in preparation for discharge - WBC 5.3, leukocytosis resolved; OFF Ce fepime/Flagyl. CT A/P done 08/13 showed distended gall bladder with pericholecystic fluid, fluid collection inferior to liver. RUQ US showed gallbladder sludge, G BW 4.3, pericholecystic fluid. HIDA eunice wed acute cholecystitis. IR drain pulled 08/20. - Peripheral neuropathy - MRI C-spine do ne - shows severe cervical stenosis at level of C3 - s/p OR 08/22 for C3-4 C5-6 ACDF - DM2 - ISS, on home Metformin - HTN - on home Norvasc and HCTZ - HLD - on home rosuvastatin - Hypothyroidism - on home Levothyroxine - UTI: resolved - PT/PM&R - continue working with PT, home health ordered - Dysphagia: to be discharged with enter al feeds, follow up with speech for repeat swallow study as outpatient - Upon discharge patient to follow up in Neurosurgery clinic : [phone] Addendum by Pranay Martinez MD on 09/05/2013 05:35 I have seen and examined this patient wi Dr. Newberry, and I a agree with this note, assesment and plan Extracted from:Title: General Surgery Author: Ryan Rome DO Date: 08/10/13 Impression and Plan The patient was seen and examined by me with the resident/HAND FLATWORK FINISHER/PA and I agree with the History/Exam documented. Patient is a 58 year old with PMH of HTN , HLD, DM2, OA. Patient had RNYGB on 09/28/11 and diagnostic lap with NEELIMA on 08/02/2013 who returned to ED on 08/05 with abdominal pain, nausea and vomiting. CT at OSH showed portal venous free air and di ffuse intestinal pneumatosis. Patient was taken emergently to the OR for ex lap, omentectomy, G tube placement, WVAC and R IJ CVC on 08/05. - Nutrition: advanced to CLD - Hypernatremia: IVF 03/08 NS, Na 149 (151 on 08/09) - Hypophosphatemia: K phosp 30 mmol - Respiratory status: extubated 08/06, saturating 100% on RA - Abdominal wound: keep wvac in place over fascia, change 08/11 at bedside - Hemodynamics: improved post-operatively, continue telemetr y - G tube placement - flush with 20 cc BID - Leukocytosis - current WBC 20.1K, continue Cefepime/Flagyl - Peripheral neuropathy - MRI C-spine or dered by Neurology, Zinc ordered/Copper; restarted gabapentin - DM2 - ISS, restarted home Metform - HTN - restarted Norvasc and HCTZ - HLD - restarted rosuvastatin - Hypothyroidism - restarted Levothyroxin Plan of Care No Data Provided for This Section Social History Social History Date Source Social History TypeResponse 08/03/2013 [facility] Substance Abuse IV drug use: No. Alcohol Alcohol use interferes with work or home: No. Smoking Status Current every day smoker; Type: Cigarett es; Exposure to Tobacco Smoke None; Cigarette Smoking Last 365 Days Yes; Reg Smoking Cessation Counseling No; Tobacco use per day: 10; 1 entered on: 09/13/18 1Patient stated she may smoke 1/2 a pack and day and sometimes she doesn't smoke any. Social History TypeResponse 08/03/2013 [facility] Substance Abuse IV drug use: No. Alcohol Alcohol use interferes with work or home: No. Smoking Status Current every day smoker; Type: Cigarett es; Tobacco use per day: 1; Exposure to Tobacco Smoke None; Cigarette Smoking Last 365 Days Yes; Reg Smoking Cessation Counseling No Family History No Data Provided for This Section Advance Directives No Data Provided for This Section Functional Status No Data Provided for This Section
--- NOTE | 2019-09-10 11:43 | EDPHYS ---
Physician Documentation [facility] Name: Kait Trimble Age: 64 yrs Sex: Female : 1955 Arrival Date: 09/10/2019 Time: 09:50 Bed 5 Private MD: David Shipley E ED Physician Adryan Mata HPI: 09/09 10:15 This 64 yrs old Black Female presents to ER via Wheelchair with complaints of Fall pm1 Injury. 10:15 Details of fall: The patient fell from an upright position, while walking. Onset: The pm1 symptoms/episode began/occurred last night. Associated injuries: The patient sustained right hand and left hand. Severity of symptoms: in the emergency department the symptoms are unchanged. The patient has not experienced similar symptoms in the past. The patient has not recently seen a physician. Patient tripped while trying to walk up a step. Braced her fall with outstretched arms and is presenting with pain to bilateral hands. No head injury, headache, neck pain, LOC. Historical: - Allergies: 10:06 Codeine; hb 10:06 Lisinopril; hb - Home Meds: 10:06 Diovan Oral [Active]; hb - PMHx: 10:06 Hyperlipidemia; Hypertension; hb - PSHx: 10:06 Gastric Bypass; removal of bypass lesions; neck surgery; hb - Immunization history: Last tetanus immunization: unknown. - Social history:: Smoking status: Patient denies any tobacco usage or history of. ROS: 10:16 Constitutional: Negative for fever, chills, and weight loss, Eyes: Negative for injury, pm1 pain, redness, and discharge, ENT: Negative for injury, pain, and discharge, Neck: Negative for injury, pain, and swelling, Cardiovascular: Negative for chest pain, palpitations, and edema, Respiratory: Negative for shortness of breath, cough, wheezing, and pleuritic chest pain, Abdomen/GI: Negative for abdominal pain, nausea, vomiting, diarrhea, and constipation, Back: Negative for injury and pain. 10:16 Skin: Negative for injury, rash, and discoloration, Neuro: Negative for headache, weakness, numbness, tingling, and seizure. 10:16 MS/extremity: Positive for pain, of the left hand and right hand, Negative for paresthesias, tingling. Exam: 10:16 Constitutional: This is a well developed, well nourished patient who is awake, alert, pm1 and in no acute distress. Head/Face: Normocephalic, atraumatic. 10:16 Neck: Trachea midline, no thyromegaly or masses palpated, and no cervical lymphadenopathy. Supple, full range of motion without nuchal rigidity, or vertebral point tenderness. No Meningismus. Chest/axilla: Normal chest wall appearance and motion. Nontender with no deformity. No lesions are appreciated. 10:16 Back: No spinal tenderness. No costovertebral tenderness. Full range of motion. Skin: Warm, dry with normal turgor. Normal color with no rashes, no lesions, and no evidence of cellulitis. 10:16 Cardiovascular: Exam negative for acute changes, Rate: normal, Rhythm: regular, Pulses: no pulse deficits are appreciated. 10:16 Respiratory: Exam negative for acute changes, respiratory distress, shortness of breath. 10:16 Abdomen/GI: Exam negative for acute changes, Inspection: abdomen appears normal, Palpation: abdomen is soft and non-tender, in all quadrants. 10:16 Musculoskeletal/extremity: Extremities: grossly normal except: noted in the dorsum of right hand: noted in the dorsum of left hand: Circulation is intact in all extremities. 10:16 Neuro: Orientation: is normal, Mentation: is normal, Motor: is normal, moves all fours, Sensation: is normal, no obvious gross deficits. Vital Signs: 10:01 BP 151 / 80; Pulse 82; Resp 16; Temp 98; Pulse Ox 100% on R/A; Weight 77.11 kg; Height hb 5 ft. 6 in. (167.64 cm); Pain 10/10; 11:00 BP 136 / 78; Pulse 80; Resp 15; Pulse Ox 99% on R/A; hb 12:38 BP 149 / 77; Pulse 59; Resp 18; Pulse Ox 100% on R/A; Pain 5/10; kl 10:01 Body Mass Index 27.44 (77.11 kg, 167.64 cm) hb [place] Coma Score: 10:01 Eye Response: spontaneous(4). Verbal Response: oriented(5). Motor Response: obeys hb commands(6). Total: 15. Trauma Score (Adult): 10:01 Eye Response: spontaneous(1); Verbal Response: oriented(1); Motor Response: obeys hb commands(2); Systolic BP: > 89 mm Hg(4); Respiratory Rate: 10 to 29 per min(4); Say Score: 15; Trauma Score: 12 11:00 Eye Response: spontaneous(1); Verbal Response: oriented(1); Motor Response: obeys hb commands(2); Systolic BP: > 89 mm Hg(4); Respiratory Rate: 10 to 29 per min(4); Say Score: 15; Trauma Score: 12 MDM: 10:04 Patient medically screened. pm1 11:05 Data reviewed: vital signs. Data interpreted: Pulse oximetry: on room air is 100 %. pm1 Interpretation: normal. 11:33 Counseling: I had a detailed discussion with the patient and/or guardian regarding: the pm1 historical points, exam findings, and any diagnostic results supporting the discharge/admit diagnosis, radiology results, the need for outpatient follow up, to return to the emergency department if symptoms worsen or persist or if there are any questions or concerns that arise at home. 09/09 10:11 Order name: Hand Right 3 View XRAY; Complete Time: 11:11 pm1 09/09 10:11 Order name: Hand Left 3 View XRAY; Complete Time: 11:11 pm1 Administered Medications: 10:16 Drug: morphine 4 mg Route: IM; Site: right deltoid; jl7 10:16 Drug: Ondansetron (Zofran) 4 mg Route: PO; jl7 11:58 Drug: fentaNYL (PF) 25 mcg Route: IM; Site: left deltoid; jl7 Disposition: 20:55 Co-signature as Attending Physician, Adryan Mata MD I agree with the assessment and christy plan of care. Disposition: 09/10/19 11:42 Discharged to Home. Impression: Pain in right hand, Pain in left hand. - Condition is Stable. - Discharge Instructions: Cast or Splint Care, Adult, Hand Contusion, Hand Pain. - Medication Reconciliation Form, Thank You Letter, Antibiotic Education, Prescription Opioid Use form. - Follow up: Emergency Department; When: As needed; Reason: Worsening of condition. Follow up: Private Physician; When: 2 - 3 days; Reason: Recheck today's complaints, Continuance of care, Re-evaluation by your physician. - Problem is new. - Symptoms have improved. Signatures: Dispatcher [employer] EDArabella Bond RN Adryan Serrano MD MD cha Marinas, Patrick, MINE EXPERT MINE EXPERT pm1 Nadia Acevedo RN RN hb Leal, Jahala, RN RN jl7 Corrections: (The following items were deleted from the chart) 12:40 11:42 09/10/2019 11:42 Discharged to Home. Impression: Pain in right hand; Pain in left kl hand. Condition is Stable. Forms are Medication Reconciliation Form, Thank You Letter, Antibiotic Education, Prescription Opioid Use. Follow up: Emergency Department; When: As needed; Reason: Worsening of condition. Follow up: Private Physician; When: 2 - 3 days; Reason: Recheck today's complaints, Continuance of care, Re-evaluation by your physician. Problem is new. Symptoms have improved. pm1
--- NOTE | 2019-09-10 11:43 | ER ---
Nurse's Notes [facility] Name: Kait Trimble Age: 64 yrs Sex: Female : 1955 Arrival Date: 09/10/2019 Time: 09:50 Bed 5 Private MD: David Shipley E Diagnosis: Pain in right hand;Pain in left hand Presentation: 09/09 09:59 Chief complaint: Bilateral hand pain 10/10 after fall onto outstretched hands last hb night. Pt reports she tripped while ambulating with cane. Denies other injuries. Negative LOC. Care prior to arrival: None. Mechanism of Injury: Fall from standing position. Trauma event details: Injury occurred in the [facility], Injury occurred: at home. Injury occurred: September 09, 2019. 09:59 Acuity: VIKTORIA 3 hb 09:59 Method Of Arrival: Wheelchair hb 10:05 Coronavirus screen: Proceed with normal triage. Ebola Screen: No symptoms or risks hb identified at this time. Initial Sepsis Screen: Does the patient meet any 2 criteria? No. Patient's initial sepsis screen is negative. Does the patient have a suspected source of infection? No. Patient's initial sepsis screen is negative. Risk Assessment: Do you want to hurt yourself or someone else? Patient reports no desire to harm self or others. Onset of symptoms was September 09, 2019. Trauma Activation: Not Applicable Physician: ED Physician; Name: ; Notified At: ; Arrived At: Physician: General Surgeon; Name: ; Notified At: ; Arrived At: Physician: Radiology; Name: ; Notified At: ; Arrived At: Physician: Respiratory; Name: ; Notified At: ; Arrived At: Physician: Lab; Name: ; Notified At: ; Arrived At: Historical: - Allergies: 10:06 Codeine; hb 10:06 Lisinopril; hb - Home Meds: 10:06 Diovan Oral [Active]; hb - PMHx: 10:06 Hyperlipidemia; Hypertension; hb - PSHx: 10:06 Gastric Bypass; removal of bypass lesions; neck surgery; hb - Immunization history: Last tetanus immunization: unknown. - Social history:: Smoking status: Patient denies any tobacco usage or history of. Screenin:01 Abuse screen: Denies threats or abuse. Denies injuries from another. Tuberculosis hb screening: No symptoms or risk factors identified. 10:06 Nutritional screening: No deficits noted. Fall Risk Total Faye Fall Scale indicates hb Low Risk Score (25-44 pts). Fall prevention measures have been instituted. Side Rails Up X 2 Frequent Obs/Assesments occuring As available Patient and Family Educated on Fall Prevention Program and strategies. Primary Survey: 10:01 NO uncontrolled hemorrhage observed. Breathing/Chest: Respiratory pattern: regular, hb Respiratory effort: spontaneous, unlabored, Chest inspection: symmetrical rise and fall of the chest. Circulation: Pulses: palpable . Skin color: pink. Disability Alert. Exposure/Environment: There is no evidence of uncontrolled external bleeding. 11:00 Reassessment Airway Airway Patent Breathing/Chest Respiratory pattern Regular hb Respiratory effort Spontaneous Unlabored Circulation Color [place] Disability Alert. Secondary Survey: 10:01 HEENT: No deficits noted. Gastrointestinal: No deficits noted. : No deficits noted. hb No signs and/or symptoms were reported regarding the genitourinary system. Musculoskeletal: Reports severe bilateral hand pain. Assessment: 10:01 General: Appears in no apparent distress. uncomfortable, Behavior is cooperative, hb crying. Pain: Pain currently is 10 out of 10 on a pain scale. Neuro: Level of Consciousness is awake, alert, obeys commands, Oriented to person, place, time, situation. EENT: No signs and/or symptoms were reported regarding the EENT system. Cardiovascular: Capillary refill < 3 seconds Patient's skin is warm and dry. Respiratory: Airway is patent Respiratory effort is even, unlabored, Respiratory pattern is regular, symmetrical. GI: No signs and/or symptoms were reported involving the gastrointestinal system. : No signs and/or symptoms were reported regarding the genitourinary system. Derm: Skin is pink, warm \T\ dry. Musculoskeletal: Reports bilateral hand pain, severe. 11:00 Reassessment: Patient appears in no apparent distress at this time. No changes from hb previously documented assessment. Patient and/or family updated on plan of care and expected duration. Pain level reassessed. Vital Signs: 10:01 BP 151 / 80; Pulse 82; Resp 16; Temp 98; Pulse Ox 100% on R/A; Weight 77.11 kg; Height hb 5 ft. 6 in. (167.64 cm); Pain 10; 11:00 BP 136 / 78; Pulse 80; Resp 15; Pulse Ox 99% on R/A; hb 12:38 BP 149 / 77; Pulse 59; Resp 18; Pulse Ox 100% on R/A; Pain 5/10; kl 10:01 Body Mass Index 27.44 (77.11 kg, 167.64 cm) hb Say Coma Score: 10:01 Eye Response: spontaneous(4). Verbal Response: oriented(5). Motor Response: obeys hb commands(6). Total: 15. Trauma Score (Adult): 10:01 Eye Response: spontaneous(1); Verbal Response: oriented(1); Motor Response: obeys hb commands(2); Systolic BP: > 89 mm Hg(4); Respiratory Rate: 10 to 29 per min(4); [place] Score: 15; Trauma Score: 12 11:00 Eye Response: spontaneous(1); Verbal Response: oriented(1); Motor Response: obeys hb commands(2); Systolic BP: > 89 mm Hg(4); Respiratory Rate: 10 to 29 per min(4); [place] Score: 15; Trauma Score: 12 ED Course: 09:50 Patient arrived in ED. mr 09:50 David Shipley MD is Private Physician. mr 10:01 Triage completed. hb 10:01 Patient has correct armband on for positive identification. Bed in low position. Call hb light in reach. Side rails up X2. 10:01 Patient maintains SpO2 saturation greater than 95% on room air. hb 10:04 Toby Otero NP is PHCP. pm1 10:04 Adryan Mata MD is Attending Physician. pm1 10:06 Thermoregulation: warm blanket given to patient. hb 10:07 Patient placed. hb 10:10 Gabe Lynn, DANIELLE is Primary Nurse. jl7 11:01 Hand Right 3 View XRAY In Process Unspecified. EDMS 11:01 Hand Left 3 View XRAY In Process Unspecified. EDMS 12:39 No provider procedures requiring assistance completed. Patient did not have IV access kl during this emergency room visit. Administered Medications: 10:16 Drug: morphine 4 mg Route: IM; Site: right deltoid; jl7 10:16 Drug: Ondansetron (Zofran) 4 mg Route: PO; jl7 11:58 Drug: fentaNYL (PF) 25 mcg Route: IM; Site: left deltoid; jl7 Intake: 10:01 PO: 0ml; Total: 0ml. Outcome: 11:42 Discharge ordered by . pm1 12:37 Discharged to home via wheelchair, with significant other. 12:37 Condition: good 12:37 Discharge instructions given to patient, family, Instructed on discharge instructions, follow up and referral plans. fall prevention Demonstrated understanding of instructions, follow-up care. 12:39 Patient's length of stay was extended due to staffing issues within the emergency kl department. 12:40 Patient left the ED. Signatures: Dispatcher [employer] EDMS Arabella Golden RN RN kl Rivera, Mary mr Marinas, Patrick, SHIPPING TEAM LEADER SHIPPING TEAM LEADER pm1 Nadia Acevedo RN RN hb Leal, Jahala, RN RN jl7
[2019-09-10] MEDS ORDERED: FENTANYL CITR 100 MCG/2 ML ONE (12:05)
[2019-09-10 12:48] VITALS: TEMP 98
[2019-09-10 12:51] VITALS: BP 149/77; O2SAT 100
== END 2019-09-10 12:40 | disposition home or self-care (01) ==
LOC: ER 09:47
DX: M79.642 Pain in left hand (principal); M79.641 Pain in right hand; I10 Essential (primary) hypertension; Z88.5 Allergy status to narcotic agent; Z88.8 Allergy status to other drugs, medicaments and biological substances; E78.5 Hyperlipidemia, unspecified; Z98.84 Bariatric surgery status
CPT/HCPCS: 96372; 99284; J3010

== ENCOUNTER 2024-03-20 16:43 | Emergency (ER) | payer OTHER ==
--- NOTE | 2024-03-20 19:03 | RAD REPORT ---
EXAMINATION: CT LUMBAR SPINE WITHOUT CONTRAST CLINICAL INDICATION: Radiculopathy TECHNIQUE: Axial CT images were obtained through the lumbar spine in soft tissue and bone windows without intravenous contrast. Coronal and Sagittal reformatted images were created from the data set. One or more of the following dose reduction techniques were us ed: Automated exposure control, adjustment of the mA and/ or kV according to patient size, and/or iterative reconstruction. Unless otherwise specified, incidental findings do not require dedicated im aging follow-up. COMPARISON: No prior exam. FINDINGS: For purposes of this dictation, it is assumed that there are 5 non rib-bearing lumbar type vertebrae, and the most caudal fully segmented lumbar vertebra is labeled L5. Small left lateral disc herniation L1-2 Small left lateral disc herniation at L2-3 Minimal anterior subluxation L3 on L4. The disc is thinned. Lucent and sclerotic areas involving the vertebral endplates. Ligamentum flavum and facet hypertrophy is present. Disc bulge is seen. The thecal sac is not well visualized but appears narrowed.. There does appear to be prominent paraverteb ral soft tissue. Mild anterior subluxation L4 on L5.. Pedicular screws united by rods have been placed at L4-5. Anteri or screws have been placed L4 and L5. A disc spacer is present. Laminectomy has been performed. No significant spinal/foraminal narrowing is noted. Disc bulge with facet hypertrophy L5-S1. Mild narrowing of the thecal sac. Mild narrowing of neural f oramina. Slight posterior subluxation L5 on S1 IMPRESSION: Small left lateral disc herniations at L1-2 and L2-3 Lucent and sclerotic areas within the vertebral endplates of L3 and L4 with prominent paravertebral s oft tissue. This raises the possibility that this represents a discitis. Comparison with prior CT lumbar spine would be helpful. Post surgical changes L4 and L5
[2024-03-20 19:42] LABS: Absolute Basophils 0.1 K/uL (0-0.5); Absolute Eosinophils 0.1 K/uL (0-0.5); Absolute Lymphocytes (CBC) 1.8 K/uL (0.7-4.9); Absolute Monocytes 0.4 K/uL (0.1-1.3); Absolute Neutrophil 3.1 K/uL (1.8-8.0); Eosinophils % 2.7 % (0-4.4); Hematocrit 36.7 % (36.0-45.0); Hemoglobin 12.3 g/dL (12.0-15.0); Lymphocytes % 31.7 % (15.3-44.8); MCH 30.8 pg (27.0-35.0); MCHC 33.6 g/dL (32.0-36.0); MCV 91.8 fL (80-100); Monocytes % 7.8 % (3.3-12.3); Neutrophils % 56.8 % (41.7-73.7); Nucleated Red Blood Cells % 0.1 % (0-0); Platelets 321 thou/uL (152-406); Red Cell Distribution Width 12.8 % (12.1-15.2)
[2024-03-20 20:03] LABS: Albumin 3.5 g/dL (3.4-5.0); Bilirubin Total 0.2 mg/dL (0.2-1.0); Globulin 3.5 g/dL (2.3-3.5)
[2024-03-20] MEDS ORDERED: ONDANSETRON 4 MG/2 ML VIAL ONE (20:13)
[2024-03-20] MEDS ORDERED: dexAMETHasone 10 MG/ML VIAL ONE (20:13)
[2024-03-20] MEDS ORDERED: KETOROLAC 30 MG/ML INJ ONE (20:13)
[2024-03-20] MEDS ORDERED: NA CHLORIDE 0.9% 500 ML ONE (20:14)
[2024-03-20] MEDS ORDERED: FENTANYL CITR 100 MCG/2 ML ONE (20:15)
[2024-03-20] MEDS ORDERED: DIAZEPAM 5 MG TABLET ONE (20:16)
--- NOTE | 2024-03-20 20:23 | EDPHYS ---
Physician Documentation [facility] Name: Kait Trimble Age: 68 yrs Sex: Female : 1955 Arrival Date: 03/20/2024 Time: 16:43 Bed 19 Private MD: ED Physician Adryan Mata HPI: 03/20 18:56 This 68 yrs old Black Female presents to ER via Wheelchair with complaints of Leg Pain. christy 18:56 The patient presents with decreased range of motion, pain, that is acute. The christy complaints affect the coccyx. Context: resulted from an unknown cause, hx of. Onset: The symptoms/episode began/occurred 2 day(s) ago. Modifying factors: The symptoms are alleviated by nothing. remaining still, the symptoms are aggravated by movement. Associated signs and symptoms: The patient has no apparent associated signs or symptoms. Treatment prior to arrival includes: prescription medications, hydrocodone. Severity of symptoms: At their worst the symptoms were moderate, in the emergency department the symptoms have improved, moderately. The patient has experienced similar episodes in the past, multiple times. Historical: - Allergies: 17:35 Lisinopril; hb 17:35 Codeine; hb - Home Meds: 17:35 [place] Oral [Active]; hb - PMHx: 17:35 Hyperlipidemia; Hypertension; Sciatica; hb - Immunization history:: Adult Immunizations unknown. - Infectious Disease History:: Denies. - Family history:: not pertinent. - Social history:: Smoking status: Patient denies any tobacco usage or history of. ROS: 18:56 Constitutional: Negative for fever, chills, and weight loss, Eyes: Negative for injury, christy pain, redness, and discharge, ENT: Negative for injury, pain, and discharge, Neck: Negative for injury, pain, and swelling, Cardiovascular: Negative for chest pain, palpitations, and edema, Respiratory: Negative for shortness of breath, cough, wheezing, and pleuritic chest pain, Abdomen/GI: Negative for abdominal pain, nausea, vomiting, diarrhea, and constipation, : Negative for injury, bleeding, discharge, and swelling, MS/Extremity: Negative for injury and deformity, Skin: Negative for injury, rash, and discoloration, Neuro: Negative for headache, weakness, numbness, tingling, and seizure, Psych: Negative for depression, anxiety, suicide ideation, homicidal ideation, and hallucinations, Allergy/Immunology: Negative for hives, rash, and allergies, Endocrine: Negative for neck swelling, polydipsia, polyuria, polyphagia, and marked weight changes, Hematologic/Lymphatic: Negative for swollen nodes, abnormal bleeding, and unusual bruising, 18:56 Back: Positive for injury or acute deformity, decreased range of motion, pain at rest, pain with movement, radiated pain, of the left low back and right low back, Exam: 18:56 Constitutional: This is a well developed, well nourished patient who is awake, alert, christy and in no acute distress. Head/Face: Normocephalic, atraumatic. Eyes: Pupils equal round and reactive to light, extra-ocular motions intact. Lids and lashes normal. Conjunctiva and sclera are non-icteric and not injected. Cornea within normal limits. Periorbital areas with no swelling, redness, or edema. ENT: Nares patent. No nasal discharge, no septal abnormalities noted. Tympanic membranes are normal and external auditory canals are clear. Oropharynx with no redness, swelling, or masses, exudates, or evidence of obstruction, uvula midline. Mucous membranes moist. Neck: Trachea midline, no thyromegaly or masses palpated, and no cervical lymphadenopathy. Supple, full range of motion without nuchal rigidity, or vertebral point tenderness. No Meningismus. Chest/axilla: Normal chest wall appearance and motion. Nontender with no deformity. No lesions are appreciated. Cardiovascular: Regular rate and rhythm with a normal S1 and S2. No gallops, murmurs, or rubs. Normal PMI, no JVD. No pulse deficits. Respiratory: Lungs have equal breath sounds bilaterally, clear to auscultation and percussion. No rales, rhonchi or wheezes noted. No increased work of breathing, no retractions or nasal flaring. Abdomen/GI: Soft, non-tender, with normal bowel sounds. No distension or tympany. No guarding or rebound. No evidence of tenderness throughout. Skin: Warm, dry with normal turgor. Normal color with no rashes, no lesions, and no evidence of cellulitis. MS/ Extremity: Pulses equal, no cyanosis. Neurovascular intact. Full, normal range of motion., bilateral aka Neuro: Awake and alert, GCS 15, oriented to person, place, time, and situation. Cranial nerves II-XII grossly intact. Motor strength 5/5 in all extremities. Sensory grossly intact. Cerebellar exam normal. Normal gait. Psych: Awake, alert, with orientation to person, place and time. Behavior, mood, and affect are within normal limits. 18:56 Back: pain, that is moderate, of the lumbar area, low back area and left low back, ROM is painful, with rotation to the right, with rotation to the left, with flexion, with extension, normal spinal alignment noted, CVA tenderness, is absent, vertebral tenderness, is not appreciated, muscle spasm, is appreciated in the left low back, left mid back, right mid back and right low back, Vital Signs: 17:33 BP 137 / 79; Pulse 87; Resp 16; Temp 98; Pulse Ox 98% on R/A; Weight 70.31 kg; Height 5 hb ft. 6 in. ; Pain 10/10; 20:30 BP 135 / 69; Pulse 68; Resp 18; Pulse Ox 96% on R/A; kj2 20:59 BP 132 / 75; Pulse 64; Resp 18; Temp 98; Pulse Ox 98% on R/A; kj2 17:33 Body Mass Index 25.02 (70.31 kg, 167.64 cm) hb 17:33 Pain Scale: Adult hb MDM: 17:14 Medical Screening Exam initiated christy 18:58 Differential diagnosis: closed fracture, contusion, tendonitis. Data reviewed: vital christy signs, nurses notes, lab test result(s), radiologic studies, CT scan. Consideration of Admission/Observation Escalation of care including admission/observation considered. I considered the following discharge prescriptions or medication management in the emergency department Medications were administered in the Emergency Department. See MAR. Independent interpretation of the following test(s) in the Emergency Department CT Scan: My interpretation is ct lumbar. Test considered but Not performed: MRI: no mri spine. Historians other than the Patient: pt well in formed. Care significantly affected by the following chronic conditions: Hypertension, hyperlipidemia, chronic pain, sciatica. Counseling: I had a detailed discussion with the patient and/or guardian regarding the historical points, exam findings, and any diagnostic results supporting the discharge/admit diagnosis, lab results, radiology results, the need for outpatient follow up, for definitive care, a family practitioner. 03/20 17:51 Order name: CBC with Diff; Complete Time: 20:23 christy 03/20 17:51 Order name: Comprehensive Metabolic Panel; Complete Time: 20:23 christy 03/20 17:51 Order name: CT Lumbar Spine Wo Con; Complete Time: 19:22 christy Administered Medications: 20:34 Drug: fentaNYL (PF) IVP 25 mcg IVP once Route: IVP; Site: left wrist; kj2 20:56 Follow up: Response: No adverse reaction kj2 20:34 Drug: Ondansetron IVP 4 mg IVP once; over 2 minutes Route: IVP; Site: left wrist; kj2 20:55 Follow up: Response: No adverse reaction kj2 20:34 Drug: Diazepam PO 5 mg PO once Route: PO; kj2 20:55 Follow up: Response: No adverse reaction kj2 20:35 Drug: Ketorolac IVP 15 mg IVP once Route: IVP; Site: left wrist; kj2 20:56 Follow up: Response: No adverse reaction kj2 20:36 Drug: NS 0.9% IV 500 ml IV at bolus once; to be given as a bolus over 30 minutes Route: kj2 IV; Rate: bolus; Site: left wrist; 20:56 Follow up: IV Status: Completed infusion; IV Intake: 500ml kj2 20:36 Drug: Decadron - Dexamethasone IVP 10 mg IVP once Route: IVP; Site: left wrist; kj2 20:56 Follow up: Response: No adverse reaction kj2 20:42 Not Given (Duplicate Order): fentanyl (pf)25 mcg IVP once kj2 Disposition Summary: 03/20/24 20:23 Discharge Ordered Notes: Location: Home christy Problem: new christy Symptoms: have improved christy Condition: Stable christy Diagnosis - Sciatica christy - Radiculopathy, lumbar region christy - Other chronic pain christy Followup: christy - With: Private Physician - When: 2 - 3 days - Reason: Recheck today's complaints, Continuance of care, Re-evaluation by your physician Followup: christy - With: Joey Andrew MD - When: 2 - 3 days - Reason: Recheck today's complaints, Re-evaluation by your physician Discharge Instructions: - Discharge Summary Sheet christy - Chronic Back Pain christy - Chronic Pain, Adult christy - Lumbosacral Radiculopathy christy - Pain Medicine Instructions christy - Chronic Back Pain, [id number] christy - Radicular Pain [facility] Forms: - Medication Reconciliation Form christy - Antibiotic Education christy - Prescription Opioid Use christy - Patient Portal Instructions [facility] - Leadership Thank You Letter [facility] Prescriptions: - dexamethasone 4 mg Oral tablet - take 1 tablet ORAL route daily begin 03/21/24; 4 tablet; Refills: 0, Product [facility] Selection Permitted - diclofenac sodium 25 mg Oral tablet, delayed release (enteric coated) - take 1 tablet ORAL route every 8 hours; 21 tablet; Refills: 0, Product [facility] Selection Permitted - methocarbamol 750 mg Oral tablet - take 1 tablet ORAL route every 6 hours; 28 tablet; Refills: 0, Product [facility] Selection Permitted Signatures: Dispatcher [employer] EDAdryan Gabriel MD MD cha Baxter, Heather, DANIELLE RN Venecia Gaines RN RN kj2 Corrections: (The following items were deleted from the chart) 17:51 17:51 CBC+H.LAB.BRZ ordered. EDMS EDMS 17:51 17:51 COMPREHENSIVE METABOLIC PANEL+C.LAB.BRZ ordered. EDMS EDMS 17:51 17:51 Urinalysis+U.LAB.BRZ ordered. EDMS EDMS
--- NOTE | 2024-03-20 20:23 | ER ---
Nurse's Notes [facility] Name: Kait Trimble Age: 68 yrs Sex: Female : 1955 Arrival Date: 03/20/2024 Time: 16:43 Bed 19 Private MD: Diagnosis: Sciatica;Radiculopathy, lumbar region;Other chronic pain Presentation: 03/20 17:33 Chief complaint: Low back pain that radiates to left leg x 3 weeks. Hx of sciatica, hb sees Dr. Mejía for pain management, MRI pending. Coronavirus screen: At this time, the client does not indicate any symptoms associated with coronavirus-19. Ebola Screen: No symptoms or risks identified at this time. Initial Sepsis Screen: Does the patient meet any 2 criteria? No. Patient's initial sepsis screen is negative. Does the patient have a suspected source of infection? No. Patient's initial sepsis screen is negative. Risk Assessment: Do you want to hurt yourself or someone else? Patient reports no desire to harm self or others. Onset of symptoms was February 2024. 17:33 Method Of Arrival: Wheelchair hb 17:33 Acuity: VIKTORIA 4 hb Historical: - Allergies: 17:35 Lisinopril; hb 17:35 Codeine; hb - Home Meds: 17:35 [place] Oral [Active]; hb - PMHx: 17:35 Hyperlipidemia; Hypertension; Sciatica; hb - Immunization history:: Adult Immunizations unknown. - Infectious Disease History:: Denies. - Family history:: not pertinent. - Social history:: Smoking status: Patient denies any tobacco usage or history of. Screenin:00 [facility] ED Fall Risk Assessment (Adult) History of falling in the last 3 months, kj2 including since admission No falls in past 3 months (0 pts) Confusion or Disorientation No (0 pts) Intoxicated or Sedated No (0 pts) Impaired Gait Yes (1 pt) Mobility Assist Device Used Yes (1 pt) Altered Elimination No (0 pt) Score/Fall Risk Level 0 - 2 = Low Risk Maintained a safe environment, Hourly rounding (assess needs \T\ fall precautionary measures) done. Abuse screen: Denies threats or abuse. Denies injuries from another. Nutritional screening: No deficits noted. Tuberculosis screening: No symptoms or risk factors identified. Assessment: 20:00 General: Appears in no apparent distress. uncomfortable, Behavior is cooperative. Pain: kj2 Complains of pain in left mid back and low back area and left low back Pain currently is 9 out of 10 on a pain scale. Neuro: Level of Consciousness is awake, alert, obeys commands, Oriented to person, place, time, situation. Cardiovascular: Patient's skin is warm and dry. Respiratory: Airway is patent Respiratory effort is even, unlabored. GI: No signs and/or symptoms were reported involving the gastrointestinal system. : No signs and/or symptoms were reported regarding the genitourinary system. 20:36 Reassessment: discharge pending completion of fluids. kj2 21:00 Reassessment: Patient appears in no apparent distress at this time. Patient and/or kj2 family updated on plan of care and expected duration. Pain level reassessed. Patient is alert, oriented x 3, equal unlabored respirations, skin warm/dry/pink. Vital Signs: 17:33 BP 137 / 79; Pulse 87; Resp 16; Temp 98; Pulse Ox 98% on R/A; Weight 70.31 kg; Height 5 hb ft. 6 in. ; Pain 10/10; 20:30 BP 135 / 69; Pulse 68; Resp 18; Pulse Ox 96% on R/A; kj2 20:59 BP 132 / 75; Pulse 64; Resp 18; Temp 98; Pulse Ox 98% on R/A; kj2 17:33 Body Mass Index 25.02 (70.31 kg, 167.64 cm) hb 17:33 Pain Scale: Adult hb ED Course: 16:47 Patient arrived in ED. mr 17:14 Adryan Mata MD is Attending Physician. christy 17:35 Triage completed. hb 18:24 CT Lumbar Spine Wo Con In Process Unspecified. EDMS 19:37 Comprehensive Metabolic Panel Sent. bc6 19:37 CBC with Diff Sent. bc6 19:37 Initial lab(s) drawn, by me, sent to lab. Inserted saline lock: 20 gauge in left wrist, bc6 using aseptic technique. Blood collected. Flushed with 10 mL NS. 19:43 Venecia Gaines, RN is Primary Nurse. kj2 20:00 Patient has correct armband on for positive identification. Provided Education on: call kj2 light. 20:23 Joey Andrew MD is Referral Physician. christy 20:38 No provider procedures requiring assistance completed. kj2 20:56 Arm band placed on Patient placed. kj2 20:59 IV discontinued, intact, bleeding controlled, No redness/swelling at site. Pressure kj2 dressing applied. Administered Medications: 20:34 Drug: fentaNYL (PF) IVP 25 mcg IVP once Route: IVP; Site: left wrist; kj2 20:56 Follow up: Response: No adverse reaction kj2 20:34 Drug: Ondansetron IVP 4 mg IVP once; over 2 minutes Route: IVP; Site: left wrist; kj2 20:55 Follow up: Response: No adverse reaction kj2 20:34 Drug: Diazepam PO 5 mg PO once Route: PO; kj2 20:55 Follow up: Response: No adverse reaction kj2 20:35 Drug: Ketorolac IVP 15 mg IVP once Route: IVP; Site: left wrist; kj2 20:56 Follow up: Response: No adverse reaction kj2 20:36 Drug: NS 0.9% IV 500 ml IV at bolus once; to be given as a bolus over 30 minutes Route: kj2 IV; Rate: bolus; Site: left wrist; 20:56 Follow up: IV Status: Completed infusion; IV Intake: 500ml kj2 20:36 Drug: Decadron - Dexamethasone IVP 10 mg IVP once Route: IVP; Site: left wrist; kj2 20:56 Follow up: Response: No adverse reaction kj2 20:42 Not Given (Duplicate Order): fentanyl (pf)25 mcg IVP once kj2 Medication: 20:40 VIS not applicable for this client. kj2 Intake: 20:56 IV: 500ml; Total: 500ml. kj2 Outcome: 20:23 Discharge ordered by . christy 20:57 Discharged to home via wheelchair, kj2 20:57 Condition: stable 20:57 Discharge instructions given to patient, family, Instructed on discharge instructions, follow up and referral plans. medication usage, Demonstrated understanding of instructions, follow-up care, medications, Prescriptions given X 3, 21:14 Patient left the ED. kj2 Signatures: Dispatcher [employer] EDMS Adryan Mata MD MD cha Rivera, Mary, Reg Reg mr Nadia Acevedo, DANIELLE RN Susannah Mclaughlin bc6 Eder, Venecia, RN RN kj2
[2024-03-23 01:43] VITALS: BP 132/75; TEMP 98; O2SAT 98
== END 2024-03-20 21:14 | disposition home or self-care (01) ==
LOC: ER 16:43
DX: M54.32 Sciatica, left side (principal); M54.31 Sciatica, right side; M54.16 Radiculopathy, lumbar region; G89.29 Other chronic pain
CPT/HCPCS: 85025; 36415; 80053; 72131; 96375; 96374; 99284; J3010; J1100; J2405; J7040